=== PATIENT | female | born 1955 | race African-American/Black ===

== ENCOUNTER 2018-12-23 18:13 | Observation (INO) ==
[2018-12-23] MEDS ORDERED: ONDANSETRON 4 MG/2 ML VIAL IV STA (18:37)
[2018-12-23] MEDS ORDERED: ALBUTEROL/IPRATROPIUM 3 ML NEB RESP TX STA (18:37)
[2018-12-23] MEDS ORDERED: PANTOPRAZOLE 40 MG VIAL IV STA (18:37)
[2018-12-23] MEDS ORDERED: METOPROLOL TARTRATE 5 MG/5 ML VIAL IV STA (18:37)
[2018-12-23 19:26] LABS: Basophils # 0.1 10*3/uL (0.0-0.2); Basophils % 1.1 % (0.0-0.8); Eosinophils # 0.2 10*3/uL (0.0-0.87); Eosinophils % 3.2 % (0.00-10.9); Hematocrit 32.5 VOL% (35.7-47.0); Hemoglobin 10.1 GM/DL (12.0-16.0); Immature Granulocytes % 0.4 %; Immature Granulocytes Absolute 0.02 #; Lymphocytes # 1.2 10*3/uL (1.4-4.0); Lymphocytes % 22.2 % (21.3-54.2); Mean Corpuscular HGB Conc 31.1 GM/DL (32-36); Mean Corpuscular Hemoglobin 29 PG (27-34); Mean Corpuscular Volume 94.2 FL (87-102); Mean Platelet Volume 10.4 FL (9.6-12.0); Monocytes # 0.6 10*3/uL (0.11-0.8); Monocytes % 10.6 % (1.7-12.7); Neutrophils # 3.5 10*3/uL (1.4-7.4); Neutrophils % 62.5 % (38.7-73.9); Platelet Count 192 T/CUMM (130-400); Red Blood Count 3.45 MC/CUMM (3.8-5.5); Red Cell Distribution Width 16.4 % (9.3-17.3); White Blood Count 5.6 T/CUMM (4-12)
[2018-12-23 19:38] LABS: INR 0.9; PT Patient Result 10.3 SECS; Partial Thromboplastin Time 25.9 SECS (0-40)
[2018-12-23 19:47] LABS: Alanine Aminotransferase 18 U/L (13-56); Albumin 3.4 G/DL (3.4-5.0); Alkaline Phosphatase 93 U/L (45-117); Amylase 92 U/L (25-115); Aspartate Amino Transferase 25 U/L (0-37); Blood Urea Nitrogen 12 MG/DL (7-18); Calcium 8.7 MG/DL (8.5-10.1); Glucose 94 MG/DL (74-106); Osmolality,Calculated 278.4 MOS/KG (273-304); Sodium 140 MMOL/L (136-145); Total Protein 7.1 G/DL (6.4-8.3); Troponin I 0.102 NG/ML (0.00-0.045)
[2018-12-23] MEDS ORDERED: ACETAMINOPHEN 325 MG TABLET PO PRN (20:57)
[2018-12-23] MEDS ORDERED: ONDANSETRON 4 MG/2 ML VIAL IV PRN (20:57)
[2018-12-23] MEDS ORDERED: hydrALAZINE 20 MG/1 ML VIAL IV PRN (21:04)
[2018-12-23] MEDS: cloNIDine 0.1 MG TABLET PO SCH (23:47)
[2018-12-23] MEDS: ENOXAPARIN 30 MG/0.3 ML SYRINGE SUBCUT SCH (23:47)
[2018-12-23] MEDS: CARVEDILOL 6.25 MG TABLET PO SCH (23:47)
[2018-12-23] MEDS: TIMOLOL 0.25% OPH SOLN 5 ML BOTTLE BOTH EYES SCH (23:48)
[2018-12-24] MEDS: LEVOTHYROXINE 50 MCG TABLET PO SCH (06:28)
[2018-12-24 06:50] LABS: Basophils # 0.1 10*3/uL (0.0-0.2); Basophils % 1.7 % (0.0-0.8); Eosinophils # 0.1 10*3/uL (0.0-0.87); Eosinophils % 3.9 % (0.00-10.9); Hematocrit 28.6 VOL% (35.7-47.0); Hemoglobin 8.5 GM/DL (12.0-16.0); Immature Granulocytes % 0.3 %; Immature Granulocytes Absolute 0.01 #; Lymphocytes % 28.9 % (21.3-54.2); Mean Corpuscular HGB Conc 29.7 GM/DL (32-36); Mean Corpuscular Hemoglobin 29 PG (27-34); Mean Corpuscular Volume 97.3 FL (87-102); Mean Platelet Volume 10.4 FL (9.6-12.0); Monocytes # 0.4 10*3/uL (0.11-0.8); Monocytes % 11.1 % (1.7-12.7); Neutrophils % 54.1 % (38.7-73.9); Platelet Count 142 T/CUMM (130-400); Red Blood Count 2.94 MC/CUMM (3.8-5.5); Red Cell Distribution Width 16.4 % (9.3-17.3); White Blood Count 3.6 T/CUMM (4-12)
[2018-12-24 07:12] LABS: Calcium 8.4 MG/DL (8.5-10.1); Osmolality,Calculated 277.5 MOS/KG (273-304); Potassium 3.2 MMOL/L (3.5-5.1)
[2018-12-24] MEDS ORDERED: Sucroferric Oxyhydroxide [Velphoro Chew Tab] 500 MG PO SCH (08:00)
[2018-12-24] MEDS: CALCITRIOL 0.5 MCG CAPSULE PO SCH (08:38)
[2018-12-24] MEDS: CALCIUM (CARBONATE) 500 MG TABLET PO SCH ×6 (08:39→21:35)
[2018-12-24] MEDS: cloNIDine 0.1 MG TABLET PO SCH ×2 (08:40→21:35)
[2018-12-24] MEDS: LOSARTAN 50 MG TABLET PO SCH (08:40)
[2018-12-24] MEDS: ASPIRIN EC 81 MG TABLET PO SCH (08:40)
[2018-12-24] MEDS: amLODIPine 10 MG TABLET PO SCH (08:40)
[2018-12-24] MEDS: PANTOPRAZOLE 40 MG TABLET PO SCH (08:40)
[2018-12-24] MEDS: CARVEDILOL 6.25 MG TABLET PO SCH ×2 (08:40→17:35)
[2018-12-24] MEDS: ISOSORBIDE MONONITRATE 30 MG TABLET PO SCH (08:40)
[2018-12-24] MEDS: TIMOLOL 0.25% OPH SOLN 5 ML BOTTLE BOTH EYES SCH ×2 (08:40→21:36)
[2018-12-24] MEDS ORDERED: PANTOPRAZOLE 40 MG TABLET PO SCH (09:00)
[2018-12-24] MEDS: ENOXAPARIN 30 MG/0.3 ML SYRINGE SUBCUT SCH (21:36)
[2018-12-25] MEDS: LEVOTHYROXINE 50 MCG TABLET PO SCH (06:11)
[2018-12-25] MEDS: ASPIRIN EC 81 MG TABLET PO SCH (08:16)
[2018-12-25] MEDS: amLODIPine 10 MG TABLET PO SCH (08:16)
[2018-12-25] MEDS: CALCITRIOL 0.5 MCG CAPSULE PO SCH (08:16)
[2018-12-25] MEDS: LOSARTAN 50 MG TABLET PO SCH (08:16)
[2018-12-25] MEDS: PANTOPRAZOLE 40 MG TABLET PO SCH (08:17)
[2018-12-25] MEDS: CARVEDILOL 6.25 MG TABLET PO SCH ×2 (08:17→16:56)
[2018-12-25] MEDS: ISOSORBIDE MONONITRATE 30 MG TABLET PO SCH (08:17)
[2018-12-25] MEDS: TIMOLOL 0.25% OPH SOLN 5 ML BOTTLE BOTH EYES SCH ×2 (08:18→21:49)
[2018-12-25] MEDS: CALCIUM (CARBONATE) 500 MG TABLET PO SCH ×6 (08:18→21:48)
[2018-12-25] MEDS: cloNIDine 0.1 MG TABLET PO SCH ×2 (08:33→21:48)
[2018-12-25] MEDS ORDERED: POTASSIUM CHLORIDE 20 MEQ TABLET PO ONE (11:53)
[2018-12-25] MEDS: ENOXAPARIN 30 MG/0.3 ML SYRINGE SUBCUT SCH (21:49)
[2018-12-25] MEDS ORDERED: DOCUSATE SODIUM 100 MG CAPSULE PO ONE (22:00)
[2018-12-26] MEDS: LEVOTHYROXINE 50 MCG TABLET PO SCH (05:58)
[2018-12-26] MEDS ORDERED: DOCUSATE SODIUM 100 MG CAPSULE PO SCH (09:00)
[2018-12-26] MEDS: CALCITRIOL 0.5 MCG CAPSULE PO SCH (09:16)
[2018-12-26] MEDS: cloNIDine 0.1 MG TABLET PO SCH (09:16)
[2018-12-26] MEDS: LOSARTAN 50 MG TABLET PO SCH (09:16)
[2018-12-26] MEDS: CALCIUM (CARBONATE) 500 MG TABLET PO SCH ×5 (09:16→16:34)
[2018-12-26] MEDS: PANTOPRAZOLE 40 MG TABLET PO SCH (09:17)
[2018-12-26] MEDS: ISOSORBIDE MONONITRATE 30 MG TABLET PO SCH (09:17)
[2018-12-26] MEDS: amLODIPine 10 MG TABLET PO SCH (09:17)
[2018-12-26] MEDS: ASPIRIN EC 81 MG TABLET PO SCH (09:17)
[2018-12-26] MEDS: TIMOLOL 0.25% OPH SOLN 5 ML BOTTLE BOTH EYES SCH (09:18)
[2018-12-26] MEDS: CARVEDILOL 6.25 MG TABLET PO SCH ×2 (09:18→16:01)
[2018-12-26] MEDS ORDERED: EPOETIN ALFA 2,000 UNIT/1 ML VIAL IV PRN (10:28)
[2018-12-26] MEDS ORDERED: SODIUM PHOSPHATE ENEMA 133 ML BOTTLE RECTAL ONE (15:52)
[2018-12-26 16:09] VITALS: BP 166/72
== END 2018-12-26 18:27 | disposition home or self-care (01) ==
LOC: EDUNIT# → N.ED 18:13 → N.EDINP 18:13 → N.5E 22:24
PROVIDERS: ADMIT Internal Medicine; ATTEND Internal Medicine

== ENCOUNTER 2019-07-09 08:16 | Inpatient (IN) ==
[2019-07-09] MEDS ORDERED: ONDANSETRON 4 MG/2 ML VIAL IV PRN (10:10)
[2019-07-09] MEDS ORDERED: PNEUMOCOCCAL VACCINE (13 VALENT) 0.5 ML SYRINGE IM ONE (10:25)
[2019-07-09] MEDS ORDERED: LABETALOL 100 MG/20 ML VIAL IV ONE (10:38)
[2019-07-09 10:42] LABS: Basophils # 0.1 10*3/uL (0.0-0.2); Basophils % 1.1 % (0.0-0.8); Eosinophils # 0.1 10*3/uL (0.0-0.87); Eosinophils % 1.1 % (0.00-10.9); Hematocrit 33.9 VOL% (35.7-47.0); Hemoglobin 10.7 GM/DL (12.0-16.0); Immature Granulocytes % 0.5 %; Immature Granulocytes Absolute 0.03 #; Lymphocytes # 1.1 10*3/uL (1.4-4.0); Lymphocytes % 20.5 % (21.3-54.2); Mean Corpuscular HGB Conc 31.6 GM/DL (32-36); Mean Corpuscular Volume 90.6 FL (87-102); Mean Platelet Volume 10.4 FL (9.6-12.0); Monocytes % 5.8 % (1.7-12.7); Platelet Count 202 T/CUMM (130-400); Red Blood Count 3.74 MC/CUMM (3.8-5.5); Red Cell Distribution Width 16.7 % (9.3-17.3); White Blood Count 5.5 T/CUMM (4-12)
[2019-07-09 11:02] LABS: Albumin 3.4 G/DL (3.4-5.0); Bilirubin,Total 0.7 MG/DL (0.2-1.0); Calcium 9.8 MG/DL (8.5-10.1); Osmolality,Calculated 287.3 MOS/KG (273-304)
[2019-07-09] MEDS: cloNIDine 0.1 MG TABLET PO SCH ×2 (11:20→22:47)
[2019-07-09] MEDS: POTASSIUM CHLORIDE 20 MEQ TABLET PO PRN ×4 (11:20→18:51)
[2019-07-09 11:44] LABS: Troponin I 0.066 NG/ML (0.00-0.045)
[2019-07-09] MEDS: Sucroferric Oxyhydroxide [Velphoro] 500 MG PO SCH ×2 (12:56→17:47)
[2019-07-09] MEDS: ACETAMINOPHEN 325 MG TABLET PO PRN (13:13)
[2019-07-09 14:42] LABS: Troponin I 0.091 NG/ML (0.00-0.045)
[2019-07-09] MEDS: TIMOLOL 0.25% OPH SOLN 5 ML BOTTLE LEFT EYE SCH (20:30)
[2019-07-10 00:56] LABS: Basophils # 0.1 10*3/uL (0.0-0.2); Basophils % 1.2 % (0.0-0.8); Eosinophils # 0.1 10*3/uL (0.0-0.87); Eosinophils % 2.8 % (0.00-10.9); Hematocrit 31.2 VOL% (35.7-47.0); Hemoglobin 9.4 GM/DL (12.0-16.0); Immature Granulocytes % 0.4 %; Immature Granulocytes Absolute 0.02 #; Lymphocytes # 1.2 10*3/uL (1.4-4.0); Lymphocytes % 24.8 % (21.3-54.2); Mean Corpuscular HGB Conc 30.1 GM/DL (32-36); Mean Corpuscular Volume 93.4 FL (87-102); Mean Platelet Volume 10.5 FL (9.6-12.0); Monocytes % 8.1 % (1.7-12.7); Neutrophils % 62.7 % (38.7-73.9); Platelet Count 173 T/CUMM (130-400); Red Blood Count 3.34 MC/CUMM (3.8-5.5); White Blood Count 4.9 T/CUMM (4-12)
[2019-07-10 06:04] LABS: Albumin 2.9 G/DL (3.4-5.0); Bilirubin,Total 0.8 MG/DL (0.2-1.0); Osmolality,Calculated 291.3 MOS/KG (273-304); Risk Ratio 2.74; Thyroid Stimulating Hormone 1.86 uIU/ml (0.358-3.74); Total Protein 6.2 G/DL (6.4-8.3)
[2019-07-10] MEDS: Sucroferric Oxyhydroxide [Velphoro] 500 MG PO SCH ×4 (07:54→16:05)
[2019-07-10] MEDS: LOSARTAN 50 MG TABLET PO SCH ×2 (09:24→14:23)
[2019-07-10] MEDS: ISOSORBIDE MONONITRATE 30 MG TABLET PO SCH ×2 (09:24→14:23)
[2019-07-10] MEDS: PANTOPRAZOLE 40 MG TABLET PO SCH ×2 (09:24→14:23)
[2019-07-10] MEDS: TIMOLOL 0.25% OPH SOLN 5 ML BOTTLE LEFT EYE SCH ×3 (09:25→22:05)
[2019-07-10] MEDS: LEVOTHYROXINE 50 MCG TABLET PO SCH ×2 (09:25→14:23)
[2019-07-10] MEDS: cloNIDine 0.1 MG TABLET PO SCH ×2 (12:23→14:24)
[2019-07-10] MEDS: hydrALAZINE 20 MG/1 ML VIAL IV PRN (16:05)
[2019-07-10] MEDS ORDERED: niCARdipine INJ 25 MG in SODIUM CHLORIDE 0.9% 240 ML IV PRN (18:37)
[2019-07-10] MEDS ORDERED: niCARdipine INJ 50 MG in SODIUM CHLORIDE 0.9% 480 ML IV PRN (20:56)
[2019-07-11] MEDS: cloNIDine 0.1 MG TABLET PO SCH ×3 (00:22→16:25)
[2019-07-11 05:17] LABS: Basophils # 0.1 10*3/uL (0.0-0.2); Basophils % 1.6 % (0.0-0.8); Eosinophils # 0.2 10*3/uL (0.0-0.87); Eosinophils % 3.9 % (0.00-10.9); Hematocrit 32.3 VOL% (35.7-47.0); Hemoglobin 9.8 GM/DL (12.0-16.0); Immature Granulocytes % 0.2 %; Immature Granulocytes Absolute 0.01 #; Lymphocytes # 1.3 10*3/uL (1.4-4.0); Mean Corpuscular HGB Conc 30.3 GM/DL (32-36); Mean Corpuscular Volume 93.6 FL (87-102); Mean Platelet Volume 10.6 FL (9.6-12.0); Monocytes % 8.3 % (1.7-12.7); Platelet Count 187 T/CUMM (130-400); Red Blood Count 3.45 MC/CUMM (3.8-5.5); White Blood Count 5.1 T/CUMM (4-12)
[2019-07-11 05:35] LABS: Albumin 3.1 G/DL (3.4-5.0); Bilirubin,Total 0.5 MG/DL (0.2-1.0); Calcium 8.4 MG/DL (8.5-10.1); Osmolality,Calculated 279.8 MOS/KG (273-304); Total Protein 6.4 G/DL (6.4-8.3)
[2019-07-11] MEDS: TIMOLOL 0.25% OPH SOLN 5 ML BOTTLE LEFT EYE SCH ×2 (08:50→22:51)
[2019-07-11] MEDS: LOSARTAN 50 MG TABLET PO SCH (08:53)
[2019-07-11] MEDS: LEVOTHYROXINE 50 MCG TABLET PO SCH (08:53)
[2019-07-11] MEDS: ASPIRIN EC 81 MG TABLET PO SCH (08:54)
[2019-07-11] MEDS: Sucroferric Oxyhydroxide [Velphoro] 500 MG PO SCH ×3 (08:54→17:12)
[2019-07-11] MEDS: PANTOPRAZOLE 40 MG TABLET PO SCH (08:54)
[2019-07-11] MEDS: ISOSORBIDE MONONITRATE 30 MG TABLET PO SCH (08:55)
[2019-07-11] MEDS ORDERED: cloNIDine 0.1 MG TABLET PO SCH (09:00)
[2019-07-11] MEDS: DOXAZOSIN 1 MG TABLET PO SCH (14:07)
[2019-07-12] MEDS ORDERED: LOSARTAN 50 MG TABLET PO SCH (09:00)
[2019-07-12] MEDS: ISOSORBIDE MONONITRATE 30 MG TABLET PO SCH (12:51)
[2019-07-12] MEDS: ASPIRIN EC 81 MG TABLET PO SCH (12:52)
[2019-07-12] MEDS: LEVOTHYROXINE 50 MCG TABLET PO SCH (12:52)
[2019-07-12] MEDS: DOXAZOSIN 1 MG TABLET PO SCH (12:52)
[2019-07-12] MEDS: PANTOPRAZOLE 40 MG TABLET PO SCH (12:52)
[2019-07-12] MEDS: Sucroferric Oxyhydroxide [Velphoro] 500 MG PO SCH ×3 (12:53→19:25)
[2019-07-12] MEDS: TIMOLOL 0.25% OPH SOLN 5 ML BOTTLE LEFT EYE SCH (12:54)
[2019-07-12] MEDS ORDERED: NITROGLYCERIN SL 0.4 MG TABLET SL ONE (17:25)
[2019-07-12] MEDS ORDERED: MORPHINE 4 MG/1 ML VIAL ONE (17:46)
[2019-07-12] MEDS: MORPHINE 4 MG/1 ML VIAL IV PRN (17:49)
[2019-07-12] MEDS: hydrALAZINE 20 MG/1 ML VIAL IV PRN (17:51)
[2019-07-12] MEDS ORDERED: NITROGLYCERIN SL 0.4 MG TABLET SL PRN (18:06)
[2019-07-12] MEDS: DOCUSATE SODIUM 100 MG CAPSULE PO PRN (20:17)
[2019-07-13] MEDS: hydrALAZINE 20 MG/1 ML VIAL IV PRN (00:02)
[2019-07-13] MEDS: cloNIDine 0.1 MG TABLET PO SCH ×3 (01:50→16:18)
[2019-07-13] MEDS: TIMOLOL 0.25% OPH SOLN 5 ML BOTTLE LEFT EYE SCH ×2 (03:00→10:20)
[2019-07-13] MEDS: ASPIRIN EC 81 MG TABLET PO SCH (09:46)
[2019-07-13] MEDS: ISOSORBIDE MONONITRATE 30 MG TABLET PO SCH (09:46)
[2019-07-13] MEDS: DOXAZOSIN 1 MG TABLET PO SCH (09:46)
[2019-07-13] MEDS: Sucroferric Oxyhydroxide [Velphoro] 500 MG PO SCH ×3 (09:46→16:18)
[2019-07-13] MEDS: LEVOTHYROXINE 50 MCG TABLET PO SCH (09:47)
[2019-07-13] MEDS: OLMESARTAN 5 MG TABLET PO SCH (09:47)
[2019-07-13] MEDS: PANTOPRAZOLE 40 MG TABLET PO SCH (09:47)
[2019-07-13] MEDS ORDERED: ZALEPLON 5 MG CAPSULE PO ONE (21:00)
[2019-07-14] MEDS: TIMOLOL 0.25% OPH SOLN 5 ML BOTTLE LEFT EYE SCH ×3 (01:04→21:25)
[2019-07-14] MEDS: cloNIDine 0.1 MG TABLET PO SCH ×3 (01:05→17:21)
[2019-07-14] MEDS: Sucroferric Oxyhydroxide [Velphoro] 500 MG PO SCH ×3 (09:00→17:59)
[2019-07-14] MEDS: ASPIRIN EC 81 MG TABLET PO SCH (14:09)
[2019-07-14] MEDS: DOXAZOSIN 1 MG TABLET PO SCH (14:09)
[2019-07-14] MEDS: OLMESARTAN 5 MG TABLET PO SCH (14:09)
[2019-07-14] MEDS: LEVOTHYROXINE 50 MCG TABLET PO SCH (14:09)
[2019-07-14] MEDS: PANTOPRAZOLE 40 MG TABLET PO SCH (14:09)
[2019-07-14] MEDS: ISOSORBIDE MONONITRATE 30 MG TABLET PO SCH (14:10)
[2019-07-14] MEDS: ACETAMINOPHEN 325 MG TABLET PO PRN (20:56)
[2019-07-15] MEDS: MORPHINE 4 MG/1 ML VIAL IV PRN (01:13)
[2019-07-15] MEDS: cloNIDine 0.1 MG TABLET PO SCH ×3 (01:14→15:58)
[2019-07-15] MEDS: DOCUSATE SODIUM 100 MG CAPSULE PO PRN (05:23)
[2019-07-15] MEDS: LEVOTHYROXINE 50 MCG TABLET PO SCH (08:08)
[2019-07-15] MEDS: OLMESARTAN 5 MG TABLET PO SCH (08:08)
[2019-07-15] MEDS: ISOSORBIDE MONONITRATE 30 MG TABLET PO SCH (08:09)
[2019-07-15] MEDS: DOXAZOSIN 1 MG TABLET PO SCH (08:09)
[2019-07-15] MEDS: PANTOPRAZOLE 40 MG TABLET PO SCH (08:09)
[2019-07-15] MEDS: ASPIRIN EC 81 MG TABLET PO SCH (08:09)
[2019-07-15] MEDS: Sucroferric Oxyhydroxide [Velphoro] 500 MG PO SCH ×3 (08:20→17:30)
[2019-07-15] MEDS ORDERED: LACTULOSE 20 GM/30 ML UDCUP PO ONE (13:18)
[2019-07-15] MEDS: BISACODYL 5 MG TABLET PO SCH (15:45)
[2019-07-15] MEDS: TIMOLOL 0.25% OPH SOLN 5 ML BOTTLE LEFT EYE SCH ×2 (15:46→21:21)
[2019-07-15] MEDS: hydrALAZINE 20 MG/1 ML VIAL IV PRN (21:18)
[2019-07-15] MEDS: ISOSORBIDE MONONITRATE 60 MG TABLET PO SCH (21:21)
[2019-07-16] MEDS: cloNIDine 0.1 MG TABLET PO SCH ×3 (00:05→16:54)
[2019-07-16] MEDS: OLMESARTAN 5 MG TABLET PO SCH (08:57)
[2019-07-16] MEDS: BISACODYL 5 MG TABLET PO SCH (08:57)
[2019-07-16] MEDS: ASPIRIN EC 81 MG TABLET PO SCH (08:57)
[2019-07-16] MEDS: PANTOPRAZOLE 40 MG TABLET PO SCH (08:57)
[2019-07-16] MEDS: LEVOTHYROXINE 50 MCG TABLET PO SCH (08:57)
[2019-07-16] MEDS: DOXAZOSIN 1 MG TABLET PO SCH (08:57)
[2019-07-16] MEDS: ISOSORBIDE MONONITRATE 60 MG TABLET PO SCH (08:57)
[2019-07-16] MEDS: Sucroferric Oxyhydroxide [Velphoro] 500 MG PO SCH ×3 (08:58→16:55)
[2019-07-16 13:15] VITALS: BP 158/74
[2019-07-16] MEDS: TIMOLOL 0.25% OPH SOLN 5 ML BOTTLE LEFT EYE SCH (16:55)
== END 2019-07-16 17:30 | disposition home or self-care (01) | DRG 291 ==
LOC: N.TELEN → SUATTDRO 09:55 → N.ICU 07-10 18:56 → N.TELEN 07-11 18:22
PROVIDERS: ADMIT Internal Medicine; ATTEND Internal Medicine

== ENCOUNTER 2019-07-19 15:10 | Observation (INO) ==
[2019-07-19 17:28] LABS: Basophils % 1.3 % (0.0-0.8); Eosinophils # 0.1 10*3/uL (0.0-0.87); Eosinophils % 2.6 % (0.00-10.9); Hematocrit 32.3 VOL% (35.7-47.0); Hemoglobin 10.2 GM/DL (12.0-16.0); Immature Granulocytes % 0.3 %; Immature Granulocytes Absolute 0.01 #; Lymphocytes # 1.1 10*3/uL (1.4-4.0); Lymphocytes % 33.9 % (21.3-54.2); Mean Corpuscular HGB Conc 31.6 GM/DL (32-36); Mean Corpuscular Volume 88.3 FL (87-102); Mean Platelet Volume 10.6 FL (9.6-12.0); Monocytes % 13.9 % (1.7-12.7); Platelet Count 172 T/CUMM (130-400); Red Blood Count 3.66 MC/CUMM (3.8-5.5); Red Cell Distribution Width 15.9 % (9.3-17.3); White Blood Count 3.1 T/CUMM (4-12)
[2019-07-19 17:49] LABS: Calcium 9.1 MG/DL (8.5-10.1); Osmolality,Calculated 278.5 MOS/KG (273-304)
[2019-07-19] MEDS ORDERED: DOCUSATE SODIUM 100 MG CAPSULE PO PRN (18:37)
[2019-07-19] MEDS ORDERED: ENOXAPARIN 30 MG/0.3 ML SYRINGE SUBCUT SCH (21:30)
[2019-07-19] MEDS: OLMESARTAN 5 MG TABLET PO SCH (22:07)
[2019-07-19] MEDS: ISOSORBIDE MONONITRATE 60 MG TABLET PO SCH (22:07)
[2019-07-19] MEDS: TIMOLOL 0.25% OPH SOLN 5 ML BOTTLE LEFT EYE SCH (22:09)
[2019-07-20] MEDS: hydrALAZINE 20 MG/1 ML VIAL IV PRN ×3 (01:42→09:07)
[2019-07-20] MEDS: MORPHINE 4 MG/1 ML VIAL IV PRN ×3 (01:43→23:24)
[2019-07-20 07:07] LABS: Calcium 9.1 MG/DL (8.5-10.1); Osmolality,Calculated 280.4 MOS/KG (273-304); Risk Ratio 3.15
[2019-07-20] MEDS: TIMOLOL 0.25% OPH SOLN 5 ML BOTTLE LEFT EYE SCH ×2 (09:03→20:39)
[2019-07-20] MEDS: DOXAZOSIN 1 MG TABLET PO SCH (11:33)
[2019-07-20] MEDS: OLMESARTAN 5 MG TABLET PO SCH ×2 (11:33→20:38)
[2019-07-20] MEDS: PANTOPRAZOLE 40 MG TABLET PO SCH (11:35)
[2019-07-20] MEDS: LOSARTAN 50 MG TABLET PO SCH (11:35)
[2019-07-20] MEDS: BISACODYL 5 MG TABLET PO SCH (11:35)
[2019-07-20] MEDS: ISOSORBIDE MONONITRATE 60 MG TABLET PO SCH ×2 (11:35→20:38)
[2019-07-20] MEDS: LEVOTHYROXINE 50 MCG TABLET PO SCH (11:36)
[2019-07-20] MEDS: ASPIRIN EC 81 MG TABLET PO SCH (11:36)
[2019-07-20] MEDS: Sucroferric Oxyhydroxide [Velphoro] 1,000 MG PO SCH ×2 (11:40→16:06)
[2019-07-20] MEDS ORDERED: ALBUTEROL/IPRATROPIUM 3 ML NEB RESP TX PRN (11:52)
[2019-07-21] MEDS: hydrALAZINE 20 MG/1 ML VIAL IV PRN (01:43)
[2019-07-21 04:41] LABS: Basophils # 0.1 10*3/uL (0.0-0.2); Basophils % 1.2 % (0.0-0.8); Eosinophils # 0.1 10*3/uL (0.0-0.87); Eosinophils % 2.2 % (0.00-10.9); Hematocrit 30.4 VOL% (35.7-47.0); Hemoglobin 9.4 GM/DL (12.0-16.0); Immature Granulocytes % 0.4 %; Immature Granulocytes Absolute 0.02 #; Lymphocytes # 1.2 10*3/uL (1.4-4.0); Lymphocytes % 24.2 % (21.3-54.2); Mean Corpuscular HGB Conc 30.9 GM/DL (32-36); Mean Corpuscular Volume 89.9 FL (87-102); Mean Platelet Volume 10.6 FL (9.6-12.0); Monocytes % 10.3 % (1.7-12.7); Neutrophils % 61.7 % (38.7-73.9); Platelet Count 196 T/CUMM (130-400); Red Blood Count 3.38 MC/CUMM (3.8-5.5); Red Cell Distribution Width 16.1 % (9.3-17.3)
[2019-07-21 05:13] LABS: Calcium 8.6 MG/DL (8.5-10.1)
[2019-07-21] MEDS ORDERED: SODIUM CHLORIDE 0.9% 250 ML IV SCH (08:00)
[2019-07-21] MEDS: Sucroferric Oxyhydroxide [Velphoro] 1,000 MG PO SCH ×3 (08:07→17:07)
[2019-07-21] MEDS: ISOSORBIDE MONONITRATE 60 MG TABLET PO SCH (08:07)
[2019-07-21] MEDS: OLMESARTAN 5 MG TABLET PO SCH (08:07)
[2019-07-21] MEDS: ASPIRIN EC 81 MG TABLET PO SCH (08:07)
[2019-07-21] MEDS ORDERED: POLYETHYLENE GLYCOL POWDER 17 GM PACK PO PRN (09:00)
[2019-07-21] MEDS ORDERED: PROPOFOL 200 MG/20 ML VIAL IV ONE (09:00)
[2019-07-21] MEDS ORDERED: LIDOCAINE 100 MG/5 ML SYRINGE ONE (09:00)
[2019-07-21] MEDS: BISACODYL 5 MG TABLET PO SCH ×2 (12:15→12:20)
[2019-07-21] MEDS: DOXAZOSIN 1 MG TABLET PO SCH (12:15)
[2019-07-21] MEDS: PANTOPRAZOLE 40 MG TABLET PO SCH (12:15)
[2019-07-21] MEDS: LOSARTAN 50 MG TABLET PO SCH (12:15)
[2019-07-21] MEDS: TIMOLOL 0.25% OPH SOLN 5 ML BOTTLE LEFT EYE SCH (12:16)
[2019-07-21] MEDS: LEVOTHYROXINE 50 MCG TABLET PO SCH (12:16)
[2019-07-21 18:11] VITALS: BP 169/84
== END 2019-07-21 18:24 | disposition home or self-care (01) ==
LOC: N.ED 15:10 → N.EDINP 15:10 → N.5E 18:51
PROVIDERS: ADMIT Internal Medicine; ATTEND Internal Medicine

== ENCOUNTER 2019-11-03 19:17 | Observation (INO) ==
[2019-11-03 19:52] LABS: Basophils % 1.2 % (0.0-0.8); Eosinophils # 0.2 10*3/uL (0.0-0.87); Eosinophils % 4.9 % (0.00-10.9); Hematocrit 38.4 VOL% (35.7-47.0); Hemoglobin 12.5 GM/DL (12.0-16.0); Immature Granulocytes % 0.3 %; Immature Granulocytes Absolute 0.01 #; Lymphocytes # 1.1 10*3/uL (1.4-4.0); Lymphocytes % 33.9 % (21.3-54.2); Mean Corpuscular HGB Conc 32.6 GM/DL (32-36); Mean Corpuscular Volume 88.3 FL (87-102); Monocytes % 11.6 % (1.7-12.7); Neutrophils % 48.1 % (38.7-73.9); Platelet Count 147 T/CUMM (130-400); Red Blood Count 4.35 MC/CUMM (3.8-5.5); Red Cell Distribution Width 16.7 % (9.3-17.3); White Blood Count 3.3 T/CUMM (4-12)
[2019-11-03 20:14] LABS: Albumin 3.7 G/DL (3.4-5.0); Bilirubin,Total 0.7 MG/DL (0.2-1.0); Osmolality,Calculated 264.4 MOS/KG (273-304)
[2019-11-03] MEDS ORDERED: NITROGLYCERIN SL 0.4 MG TABLET SL STA (20:15)
[2019-11-04] MEDS ORDERED: ACETAMINOPHEN 325 MG TABLET PO PRN (00:07)
[2019-11-04] MEDS ORDERED: DOCUSATE SODIUM 100 MG CAPSULE PO PRN (00:07)
[2019-11-04] MEDS ORDERED: guaiFENesin/DM ER 600-30 MG TABLET PO PRN (00:07)
[2019-11-04] MEDS ORDERED: ZALEPLON 5 MG CAPSULE PO PRN (00:07)
[2019-11-04] MEDS ORDERED: PROMETHAZINE 25 MG TABLET PO PRN (00:07)
[2019-11-04] MEDS ORDERED: diphenhydrAMINE CAP 25 MG CAPSULE PO PRN (00:07)
[2019-11-04] MEDS ORDERED: ONDANSETRON 4 MG/2 ML VIAL IV PRN (00:07)
[2019-11-04] MEDS ORDERED: MORPHINE 4 MG/1 ML VIAL IV PRN (00:07)
[2019-11-04] MEDS ORDERED: hydrALAZINE 20 MG/1 ML VIAL IV PRN (00:10)
[2019-11-04] MEDS ORDERED: POLYETHYLENE GLYCOL POWDER 17 GM PACK PO PRN (00:11)
[2019-11-04] MEDS ORDERED: NITROGLYCERIN SL 0.4 MG TABLET SL PRN (00:13)
[2019-11-04] MEDS ORDERED: ALBUTEROL 2.5 MG/3 ML NEB RESP TX PRN (00:13)
[2019-11-04 05:11] LABS: Basophils # 0.1 10*3/uL (0.0-0.2); Basophils % 1.6 % (0.0-0.8); Eosinophils # 0.2 10*3/uL (0.0-0.87); Eosinophils % 6.6 % (0.00-10.9); Hematocrit 32.8 VOL% (35.7-47.0); Immature Granulocytes % 0.3 %; Immature Granulocytes Absolute 0.01 #; Lymphocytes # 1.3 10*3/uL (1.4-4.0); Lymphocytes % 34.9 % (21.3-54.2); Mean Corpuscular Volume 90.1 FL (87-102); Mean Platelet Volume 10.9 FL (9.6-12.0); Monocytes % 14.6 % (1.7-12.7); Platelet Count 124 T/CUMM (130-400); Red Blood Count 3.64 MC/CUMM (3.8-5.5); Red Cell Distribution Width 16.9 % (9.3-17.3); White Blood Count 3.6 T/CUMM (4-12)
[2019-11-04 05:21] LABS: Hemoglobin 10.5 GM/DL (12.0-16.0)
[2019-11-04 05:23] LABS: Alanine Aminotransferase 13 U/L (13-56); Alkaline Phosphatase 79 U/L (45-117); Aspartate Amino Transferase 16 U/L (0-37); Bilirubin,Total < 0.39 MG/DL (0.2-1.0); Blood Urea Nitrogen 17 MG/DL (7-18); Calcium 7.9 MG/DL (8.5-10.1); Estimated Glom Filtration Rate 11 ML/MIN; Glucose 81 MG/DL (74-106); Osmolality,Calculated 273.8 MOS/KG (273-304); Total Protein 6.6 G/DL (6.4-8.3)
[2019-11-04] MEDS ORDERED: ENOXAPARIN 80 MG/0.8 ML SYRINGE SUBCUT ONE (07:09)
[2019-11-04] MEDS: LEVOTHYROXINE 50 MCG TABLET PO SCH (09:51)
[2019-11-04] MEDS: DOXAZOSIN 1 MG TABLET PO SCH (09:51)
[2019-11-04] MEDS: ISOSORBIDE MONONITRATE 60 MG TABLET PO SCH ×2 (09:51→21:43)
[2019-11-04] MEDS: ASPIRIN EC 81 MG TABLET PO SCH (09:51)
[2019-11-04] MEDS ORDERED: ATORVASTATIN 20 MG TABLET PO SCH (21:00)
[2019-11-04] MEDS: GABAPENTIN 100 MG CAPSULE PO SCH (21:43)
[2019-11-05 04:39] LABS: Basophils # 0.1 10*3/uL (0.0-0.2); Basophils % 2.1 % (0.0-0.8); Eosinophils # 0.2 10*3/uL (0.0-0.87); Eosinophils % 8.1 % (0.00-10.9); Hematocrit 30.9 VOL% (35.7-47.0); Hemoglobin 9.8 GM/DL (12.0-16.0); Immature Granulocytes % 0.4 %; Immature Granulocytes Absolute 0.01 #; Lymphocytes # 1.2 10*3/uL (1.4-4.0); Lymphocytes % 42.8 % (21.3-54.2); Mean Corpuscular HGB Conc 31.7 GM/DL (32-36); Mean Corpuscular Volume 89.8 FL (87-102); Mean Platelet Volume 9.8 FL (9.6-12.0); Neutrophils % 33.6 % (38.7-73.9); Platelet Count 114 T/CUMM (130-400); Red Blood Count 3.44 MC/CUMM (3.8-5.5); Red Cell Distribution Width 16.5 % (9.3-17.3); White Blood Count 2.9 T/CUMM (4-12)
[2019-11-05 05:21] LABS: Eosinophils 8 % (0-10); Hypochromasia 1+; Lymphocytes 40 % (20-55); Microcytosis 1+; Segmented Neutrophils 42 % (50-85); Total Cells Counted 100
[2019-11-05 05:22] LABS: Atypical Lymphocytes Few; Platelet Estimate Adequate
[2019-11-05 06:06] LABS: Calcium 7.8 MG/DL (8.5-10.1); Osmolality,Calculated 274.8 MOS/KG (273-304)
[2019-11-05 07:48] VITALS: BP 144/65
[2019-11-05] MEDS: GABAPENTIN 100 MG CAPSULE PO SCH (09:06)
[2019-11-05] MEDS: DOXAZOSIN 1 MG TABLET PO SCH (09:06)
[2019-11-05] MEDS: LEVOTHYROXINE 50 MCG TABLET PO SCH (09:06)
[2019-11-05] MEDS: ASPIRIN EC 81 MG TABLET PO SCH (09:06)
[2019-11-05] MEDS: ISOSORBIDE MONONITRATE 60 MG TABLET PO SCH (09:06)
[2019-11-05] MEDS ORDERED: POTASSIUM CHLORIDE 20 MEQ TABLET PO ONE (11:23)
== END 2019-11-05 11:25 | disposition home or self-care (01) ==
LOC: N.ED 19:17 → N.EDINP 19:17 → SUATTDRO 11-04 00:07 → N.TELEN 11-04 00:35
PROVIDERS: ADMIT Internal Medicine; ATTEND Internal Medicine

== ENCOUNTER 2020-04-05 19:00 | Inpatient (IN) ==
[2020-04-05] MEDS ORDERED: ONDANSETRON 4 MG/2 ML VIAL IV STA (19:27)
[2020-04-05] MEDS ORDERED: ORPHENADRINE 60 MG/2 ML VIAL IV STA (19:27)
[2020-04-05 20:04] LABS: Basophils # 0.1 10*3/uL (0.0-0.2); Basophils % 1.1 % (0.0-0.8); Eosinophils # 0.2 10*3/uL (0.0-0.87); Eosinophils % 4.4 % (0.00-10.9); Hematocrit 27.2 VOL% (35.7-47.0); Hemoglobin 8.4 GM/DL (12.0-16.0); Immature Granulocytes % 0.4 %; Immature Granulocytes Absolute 0.02 #; Lymphocytes # 1.1 10*3/uL (1.4-4.0); Lymphocytes % 20.1 % (21.3-54.2); Mean Corpuscular HGB Conc 30.9 GM/DL (32-36); Mean Corpuscular Volume 95.1 FL (87-102); Mean Platelet Volume 10.6 FL (9.6-12.0); Monocytes % 10.1 % (1.7-12.7); Neutrophils % 63.9 % (38.7-73.9); Platelet Count 126 T/CUMM (130-400); Red Blood Count 2.86 MC/CUMM (3.8-5.5); Red Cell Distribution Width 17.2 % (9.3-17.3); White Blood Count 5.2 T/CUMM (4-12)
[2020-04-05 20:16] LABS: INR 1.1; PT Patient Result 11.3 SECS (9.8-11.9)
[2020-04-05 20:30] LABS: Alanine Aminotransferase 12 U/L (13-56); Albumin 3.2 G/DL (3.4-5.0); Alkaline Phosphatase 97 U/L (45-117); Aspartate Amino Transferase 22 U/L (0-37); Blood Urea Nitrogen 39 MG/DL (7-18); Estimated Glom Filtration Rate 8 ML/MIN; Ferritin 1612.6 ng/ml (8-252); Glucose 82 MG/DL (74-106); Osmolality,Calculated 275.2 MOS/KG (273-304); Total Protein 7.5 G/DL (6.4-8.3)
[2020-04-05 20:34] LABS: Troponin I 0.046 NG/ML (0.00-0.045)
[2020-04-05] MEDS ORDERED: PROMETHAZINE 25 MG/1 ML VIAL IM PRN (22:34)
[2020-04-05] MEDS ORDERED: ACETAMINOPHEN 325 MG TABLET PO PRN (22:34)
[2020-04-05] MEDS ORDERED: DEXTROSE 50% 25 GM/50 ML VIAL IV PRN (22:34)
[2020-04-05] MEDS ORDERED: ZALEPLON 5 MG CAPSULE PO PRN (22:34)
[2020-04-05] MEDS ORDERED: DOCUSATE SODIUM 100 MG CAPSULE PO PRN (22:34)
[2020-04-05] MEDS ORDERED: guaiFENesin/DM ER 600-30 MG TABLET PO PRN (22:34)
[2020-04-05] MEDS ORDERED: GLUCAGON 1 MG VIAL IM PRN (22:34)
[2020-04-05] MEDS ORDERED: ONDANSETRON 4 MG/2 ML VIAL IV PRN (22:34)
[2020-04-05] MEDS ORDERED: NICOTINE 21 MG/24 HR PATCH TRANSDERM PRN (22:34)
[2020-04-06] MEDS: hydrALAZINE 20 MG/1 ML VIAL IV PRN ×3 (04:38→22:11)
[2020-04-06 06:07] LABS: Basophils # 0.1 10*3/uL (0.0-0.2); Basophils % 1.1 % (0.0-0.8); Eosinophils # 0.2 10*3/uL (0.0-0.87); Eosinophils % 3.8 % (0.00-10.9); Hematocrit 23.9 VOL% (35.7-47.0); Hemoglobin 7.3 GM/DL (12.0-16.0); Immature Granulocytes % 0.4 %; Immature Granulocytes Absolute 0.02 #; Lymphocytes # 0.9 10*3/uL (1.4-4.0); Lymphocytes % 19.8 % (21.3-54.2); Mean Corpuscular HGB Conc 30.5 GM/DL (32-36); Mean Corpuscular Volume 95.2 FL (87-102); Mean Platelet Volume 11.1 FL (9.6-12.0); Monocytes % 12.8 % (1.7-12.7); Neutrophils % 62.1 % (38.7-73.9); Platelet Count 120 T/CUMM (130-400); Red Blood Count 2.51 MC/CUMM (3.8-5.5); Red Cell Distribution Width 17.2 % (9.3-17.3); White Blood Count 4.8 T/CUMM (4-12)
[2020-04-06 06:30] LABS: Albumin 2.9 G/DL (3.4-5.0); Bilirubin,Total 1.2 MG/DL (0.2-1.0); Calcium 7.7 MG/DL (8.5-10.1); Osmolality,Calculated 277.2 MOS/KG (273-304); Total Protein 6.6 G/DL (6.4-8.3)
[2020-04-06 08:59] LABS: Hepatitis B Core IgM Quant 0.19 Index; Hepatitis B Surface Ag Quant 0.56 Index; Hepatitis B Surface Ag Result Negative (Negative); Hepatitis C Virus Ab Quant 0.08 Index; Hepatitis C Virus Ab Result Negative (Negative)
[2020-04-07] MEDS: hydrALAZINE 20 MG/1 ML VIAL IV PRN ×3 (04:39→16:36)
[2020-04-07] MEDS: diphenhydrAMINE CAP 25 MG CAPSULE PO PRN ×3 (09:07→21:42)
[2020-04-07 11:50] LABS: Basophils # 0.1 10*3/uL (0.0-0.2); Basophils % 1.1 % (0.0-0.8); Eosinophils # 0.2 10*3/uL (0.0-0.87); Eosinophils % 3.3 % (0.00-10.9); Hematocrit 25.4 VOL% (35.7-47.0); Hemoglobin 7.7 GM/DL (12.0-16.0); Immature Granulocytes % 0.2 %; Immature Granulocytes Absolute 0.01 #; Lymphocytes # 1.1 10*3/uL (1.4-4.0); Lymphocytes % 22.9 % (21.3-54.2); Mean Corpuscular HGB Conc 30.3 GM/DL (32-36); Mean Corpuscular Volume 95.8 FL (87-102); Mean Platelet Volume 11.3 FL (9.6-12.0); Monocytes % 13.1 % (1.7-12.7); Neutrophils % 59.4 % (38.7-73.9); Platelet Count 127 T/CUMM (130-400); Red Blood Count 2.65 MC/CUMM (3.8-5.5); Red Cell Distribution Width 16.8 % (9.3-17.3); White Blood Count 4.6 T/CUMM (4-12)
[2020-04-07 12:16] LABS: Calcium 8.4 MG/DL (8.5-10.1); Osmolality,Calculated 273.2 MOS/KG (273-304)
[2020-04-07] MEDS: LOSARTAN 50 MG TABLET PO SCH (12:33)
[2020-04-07] MEDS: carvediloL 25 MG TABLET PO SCH (21:41)
[2020-04-08] MEDS: hydrALAZINE 20 MG/1 ML VIAL IV PRN ×2 (00:50→13:14)
[2020-04-08 07:11] LABS: Basophils # 0.1 10*3/uL (0.0-0.2); Basophils % 2.1 % (0.0-0.8); Eosinophils # 0.2 10*3/uL (0.0-0.87); Eosinophils % 4.4 % (0.00-10.9); Hematocrit 24.3 VOL% (35.7-47.0); Hemoglobin 7.8 GM/DL (12.0-16.0); Immature Granulocytes % 0.3 %; Immature Granulocytes Absolute 0.01 #; Lymphocytes # 0.9 10*3/uL (1.4-4.0); Lymphocytes % 24.4 % (21.3-54.2); Mean Corpuscular HGB Conc 32.1 GM/DL (32-36); Mean Corpuscular Volume 93.1 FL (87-102); Mean Platelet Volume 11.4 FL (9.6-12.0); Monocytes % 13.8 % (1.7-12.7); Platelet Count 129 T/CUMM (130-400); Red Blood Count 2.61 MC/CUMM (3.8-5.5); Red Cell Distribution Width 16.7 % (9.3-17.3); White Blood Count 3.9 T/CUMM (4-12)
[2020-04-08 07:41] LABS: Calcium 8.6 MG/DL (8.5-10.1); Osmolality,Calculated 279.1 MOS/KG (273-304)
[2020-04-08] MEDS: diphenhydrAMINE CAP 25 MG CAPSULE PO PRN (09:51)
[2020-04-08] MEDS: LOSARTAN 50 MG TABLET PO SCH (09:51)
[2020-04-08] MEDS: carvediloL 25 MG TABLET PO SCH (09:51)
[2020-04-08] MEDS ORDERED: diphenhydrAMINE 2% CREAM 28 GM TUBE TOP PRN (10:32)
[2020-04-08 16:36] VITALS: BP 186/70
== END 2020-04-08 17:22 | disposition home health service (06) | DRG 947 ==
LOC: EDBD → EDUNIT# → N.ED 19:00 → N.EDINP 22:34 → SUATTDRO 22:34 → SUPCPDRO 22:34 → N.2E 04-06 01:00
PROVIDERS: ADMIT Internal Medicine; ATTEND Family Medicine

== ENCOUNTER 2021-01-17 12:39 | Inpatient (IN) ==
[2021-01-17 13:33] LABS: Basophils % 0.6 % (0.0-0.8); Eosinophils # 0.2 10*3/uL (0.0-0.87); Eosinophils % 3.6 % (0.00-10.9); Hematocrit 30.2 VOL% (35.7-47.0); Hemoglobin 9.2 GM/DL (12.0-16.0); Immature Granulocytes % 0.6 %; Immature Granulocytes Absolute 0.04 #; Lymphocytes # 1.2 10*3/uL (1.4-4.0); Lymphocytes % 17.1 % (21.3-54.2); Mean Corpuscular HGB Conc 30.5 GM/DL (32-36); Mean Corpuscular Volume 98.4 FL (87-102); Mean Platelet Volume 9.9 FL (9.6-12.0); Monocytes % 12.8 % (1.7-12.7); Neutrophils % 65.3 % (38.7-73.9); Platelet Count 129 T/CUMM (130-400); Red Blood Count 3.07 MC/CUMM (3.8-5.5); Red Cell Distribution Width 17.9 % (9.3-17.3); White Blood Count 6.7 T/CUMM (4-12)
[2021-01-17] MEDS ORDERED: ONDANSETRON 4 MG/2 ML VIAL IV STA (13:45)
[2021-01-17] MEDS ORDERED: HYDROmorphone 2 MG/1 ML VIAL IV STA (13:45)
[2021-01-17 13:47] LABS: Calcium 7.7 MG/DL (8.5-10.1); Osmolality,Calculated 297.3 MOS/KG (273-304); Potassium 4.2 MMOL/L (3.5-5.1)
[2021-01-17] MEDS ORDERED: GLUCAGON 1 MG VIAL IM PRN (16:26)
[2021-01-17] MEDS ORDERED: ZALEPLON 5 MG CAPSULE PO PRN (16:26)
[2021-01-17] MEDS ORDERED: DEXTROSE 50% 25 GM/50 ML VIAL IV PRN (16:26)
[2021-01-17] MEDS: HYDROmorphone 2 MG/1 ML VIAL IV PRN ×2 (17:40→21:47)
[2021-01-17] MEDS ORDERED: DOCUSATE SODIUM 100 MG CAPSULE PO PRN (20:33)
[2021-01-17] MEDS: hydrALAZINE 20 MG/1 ML VIAL IV PRN ×2 (21:24→22:48)
[2021-01-17] MEDS: GABAPENTIN 400 MG CAPSULE PO SCH (21:25)
[2021-01-17] MEDS: carvediloL 25 MG TABLET PO SCH (21:25)
[2021-01-17] MEDS: ONDANSETRON 4 MG/2 ML VIAL IV PRN (21:47)
[2021-01-18] MEDS: hydrALAZINE 20 MG/1 ML VIAL IV PRN (00:14)
[2021-01-18] MEDS: PANTOPRAZOLE 40 MG TABLET PO SCH (06:09)
[2021-01-18] MEDS: LEVOTHYROXINE 50 MCG TABLET PO SCH (06:09)
[2021-01-18 06:18] LABS: Basophils % 0.5 % (0.0-0.8); Eosinophils # 0.2 10*3/uL (0.0-0.87); Eosinophils % 2.3 % (0.00-10.9); Hematocrit 30.5 VOL% (35.7-47.0); Hemoglobin 9.3 GM/DL (12.0-16.0); Immature Granulocytes % 0.7 %; Immature Granulocytes Absolute 0.06 #; Lymphocytes # 1.1 10*3/uL (1.4-4.0); Lymphocytes % 12.2 % (21.3-54.2); Mean Corpuscular HGB Conc 30.5 GM/DL (32-36); Mean Corpuscular Volume 96.8 FL (87-102); Mean Platelet Volume 10.6 FL (9.6-12.0); Neutrophils % 74.3 % (38.7-73.9); Platelet Count 138 T/CUMM (130-400); Red Blood Count 3.15 MC/CUMM (3.8-5.5); Red Cell Distribution Width 17.9 % (9.3-17.3); White Blood Count 8.8 T/CUMM (4-12)
[2021-01-18 07:13] LABS: Albumin 3.1 G/DL (3.4-5.0); Calcium 7.6 MG/DL (8.5-10.1); Osmolality,Calculated 295.7 MOS/KG (273-304); Potassium 5.9 MMOL/L (3.5-5.1); Total Protein 6.9 G/DL (6.4-8.2)
[2021-01-18] MEDS: carvediloL 25 MG TABLET PO SCH ×2 (09:58→16:58)
[2021-01-18] MEDS: GABAPENTIN 400 MG CAPSULE PO SCH ×2 (09:58→21:05)
[2021-01-18] MEDS: HYDROmorphone 2 MG/1 ML VIAL IV PRN ×2 (16:58→21:06)
[2021-01-18] MEDS: ONDANSETRON 4 MG/2 ML VIAL IV PRN (21:06)
[2021-01-19] MEDS: PANTOPRAZOLE 40 MG TABLET PO SCH (05:42)
[2021-01-19] MEDS: LEVOTHYROXINE 50 MCG TABLET PO SCH (05:42)
[2021-01-19 06:30] LABS: Basophils # 0.1 10*3/uL (0.0-0.2); Basophils % 0.7 % (0.0-0.8); Eosinophils # 0.2 10*3/uL (0.0-0.87); Eosinophils % 2.3 % (0.00-10.9); Immature Granulocytes % 0.5 %; Immature Granulocytes Absolute 0.04 #; Lymphocytes # 1.4 10*3/uL (1.4-4.0); Lymphocytes % 19.3 % (21.3-54.2); Mean Corpuscular Volume 95.4 FL (87-102); Mean Platelet Volume 10.5 FL (9.6-12.0); Monocytes % 10.7 % (1.7-12.7); Neutrophils % 66.5 % (38.7-73.9); Platelet Count 122 T/CUMM (130-400); Red Blood Count 3.04 MC/CUMM (3.8-5.5); Red Cell Distribution Width 17.5 % (9.3-17.3); White Blood Count 7.4 T/CUMM (4-12)
[2021-01-19 06:57] LABS: Calcium 7.7 MG/DL (8.5-10.1); Osmolality,Calculated 275.4 MOS/KG (273-304); Potassium 4.7 MMOL/L (3.5-5.1)
[2021-01-19] MEDS: carvediloL 25 MG TABLET PO SCH (08:37)
[2021-01-19] MEDS: GABAPENTIN 400 MG CAPSULE PO SCH ×2 (08:37→21:26)
[2021-01-19] MEDS ORDERED: NITROGLYCERIN SL 0.4 MG TABLET SL ONE (10:12)
[2021-01-19] MEDS ORDERED: EPOETIN ALFA-EPBX 2,000 UNIT/ML VIAL IV PRN (10:57)
[2021-01-19] MEDS: NITROGLYCERIN SL 0.4 MG TABLET SL PRN ×2 (16:25→16:43)
[2021-01-19] MEDS ORDERED: ACETAMINOPHEN 325 MG TABLET PO PRN (16:46)
[2021-01-19] MEDS ORDERED: ALUM/MAG/SIMETH/LIDO VISC 1:1 30 ML BOTTLE PO ONE (17:00)
[2021-01-19] MEDS: carvediloL 12.5 MG TABLET PO SCH (18:15)
[2021-01-20 05:25] LABS: Basophils % 0.6 % (0.0-0.8); Eosinophils # 0.2 10*3/uL (0.0-0.87); Eosinophils % 2.5 % (0.00-10.9); Hematocrit 26.2 VOL% (35.7-47.0); Hemoglobin 8.3 GM/DL (12.0-16.0); Immature Granulocytes % 0.3 %; Immature Granulocytes Absolute 0.02 #; Lymphocytes # 1.2 10*3/uL (1.4-4.0); Lymphocytes % 19.2 % (21.3-54.2); Mean Corpuscular HGB Conc 31.7 GM/DL (32-36); Mean Corpuscular Volume 94.6 FL (87-102); Mean Platelet Volume 11.3 FL (9.6-12.0); Monocytes % 11.9 % (1.7-12.7); Neutrophils % 65.5 % (38.7-73.9); Platelet Count 116 T/CUMM (130-400); Red Blood Count 2.77 MC/CUMM (3.8-5.5); White Blood Count 6.3 T/CUMM (4-12)
[2021-01-20 05:39] LABS: Calcium 7.4 MG/DL (8.5-10.1); Osmolality,Calculated 284.1 MOS/KG (273-304)
[2021-01-20 05:43] LABS: Hypochromasia 1+; Microcytosis 1+
[2021-01-20] MEDS: PANTOPRAZOLE 40 MG TABLET PO SCH (06:21)
[2021-01-20] MEDS: LEVOTHYROXINE 50 MCG TABLET PO SCH (06:21)
[2021-01-20] MEDS: carvediloL 12.5 MG TABLET PO SCH (08:16)
[2021-01-20] MEDS: GABAPENTIN 400 MG CAPSULE PO SCH ×2 (08:17→20:58)
[2021-01-20 12:27] LABS: Free T4 (Free Thyroxine) 0.67 NG/DL (0.76-1.46); Thyroid Stimulating Hormone 1.35 uIU/ml (0.358-3.74)
[2021-01-20] MEDS: carvediloL 3.125 MG TABLET PO SCH ×2 (16:21→16:35)
[2021-01-20] MEDS ORDERED: carvediloL 6.25 MG TABLET PO SCH (17:00)
[2021-01-21 05:08] LABS: Basophils # 0.1 10*3/uL (0.0-0.2); Basophils % 0.9 % (0.0-0.8); Eosinophils # 0.2 10*3/uL (0.0-0.87); Eosinophils % 3.1 % (0.00-10.9); Hematocrit 26.6 VOL% (35.7-47.0); Hemoglobin 8.4 GM/DL (12.0-16.0); Immature Granulocytes % 0.4 %; Immature Granulocytes Absolute 0.02 #; Lymphocytes # 1.1 10*3/uL (1.4-4.0); Lymphocytes % 19.9 % (21.3-54.2); Mean Corpuscular HGB Conc 31.6 GM/DL (32-36); Mean Platelet Volume 10.4 FL (9.6-12.0); Monocytes % 11.4 % (1.7-12.7); Neutrophils % 64.3 % (38.7-73.9); Platelet Count 145 T/CUMM (130-400); Red Blood Count 2.77 MC/CUMM (3.8-5.5); Red Cell Distribution Width 16.5 % (9.3-17.3); White Blood Count 5.4 T/CUMM (4-12)
[2021-01-21 05:16] LABS: Calcium 7.6 MG/DL (8.5-10.1); Osmolality,Calculated 268.7 MOS/KG (273-304); Potassium 4.8 MMOL/L (3.5-5.1)
[2021-01-21] MEDS: PANTOPRAZOLE 40 MG TABLET PO SCH (05:33)
[2021-01-21] MEDS: LEVOTHYROXINE 50 MCG TABLET PO SCH (05:33)
[2021-01-21] MEDS: carvediloL 3.125 MG TABLET PO SCH ×3 (08:13→16:30)
[2021-01-21] MEDS: GABAPENTIN 400 MG CAPSULE PO SCH ×2 (08:13→20:54)
[2021-01-21] MEDS ORDERED: ceFAZolin 1,000 MG in SYRINGE 1 EACH IV ONE (09:30)
[2021-01-22 05:37] LABS: Basophils # 0.1 10*3/uL (0.0-0.2); Basophils % 1.3 % (0.0-0.8); Eosinophils # 0.2 10*3/uL (0.0-0.87); Eosinophils % 2.6 % (0.00-10.9); Hematocrit 26.2 VOL% (35.7-47.0); Hemoglobin 8.4 GM/DL (12.0-16.0); Immature Granulocytes % 0.3 %; Immature Granulocytes Absolute 0.02 #; Lymphocytes # 1.3 10*3/uL (1.4-4.0); Lymphocytes % 21.5 % (21.3-54.2); Mean Corpuscular HGB Conc 32.1 GM/DL (32-36); Mean Corpuscular Volume 94.2 FL (87-102); Mean Platelet Volume 10.7 FL (9.6-12.0); Monocytes % 9.8 % (1.7-12.7); Neutrophils % 64.5 % (38.7-73.9); Platelet Count 171 T/CUMM (130-400); Red Blood Count 2.78 MC/CUMM (3.8-5.5); Red Cell Distribution Width 16.1 % (9.3-17.3); White Blood Count 6.1 T/CUMM (4-12)
[2021-01-22 05:54] LABS: Calcium 7.7 MG/DL (8.5-10.1); Osmolality,Calculated 273.7 MOS/KG (273-304); Potassium 5.6 MMOL/L (3.5-5.1)
[2021-01-22] MEDS ORDERED: ceFAZolin 1,000 MG in SYRINGE 1 EACH IV ONE (06:00)
[2021-01-22] MEDS: LEVOTHYROXINE 75 MCG TABLET PO SCH (06:44)
[2021-01-22] MEDS: PANTOPRAZOLE 40 MG TABLET PO SCH (06:44)
[2021-01-22] MEDS: carvediloL 3.125 MG TABLET PO SCH ×2 (08:07→17:39)
[2021-01-22] MEDS: LACTATED RINGERS 1,000 ML IV SCH (08:28)
[2021-01-22] MEDS: GABAPENTIN 400 MG CAPSULE PO SCH ×2 (08:29→21:50)
[2021-01-22 08:32] LABS: HIV Antigen/Antibody Result Nonreactive (Nonreactive); Hepatitis B Surface Ag Quant < 0.10 Index; Hepatitis B Surface Ag Result Non-Reactive (NonReactive); Hepatitis C Virus Ab Quant 0.04 Index; Hepatitis C Virus Ab Result Non-Reactive (NonReactive)
[2021-01-22] MEDS ORDERED: MIDAZOLAM 2 MG/2 ML VIAL ONE (10:33)
[2021-01-22] MEDS ORDERED: fentaNYL 100 MCG/2 ML VIAL ONE (10:33)
[2021-01-22] MEDS ORDERED: ePHEDrine 50 MG/ML VIAL ONE (10:34)
[2021-01-22] MEDS ORDERED: PHENYLEPHRINE DRIP 20 MG/250 ML PREMIX IV ONE (10:38)
[2021-01-22] MEDS ORDERED: GLYCOPYRROLATE 0.4 MG/2 ML VIAL ONE (10:38)
[2021-01-22] MEDS ORDERED: LIDOCAINE 2% 5 ML VIAL ONE (10:38)
[2021-01-22] MEDS ORDERED: NEOSTIGMINE 10 MG/10 ML VIAL ONE (10:38)
[2021-01-22] MEDS ORDERED: ROCURONIUM 50 MG/5 ML VIAL IV ONE (10:38)
[2021-01-22] MEDS ORDERED: ETOMIDATE 40 MG/20 ML VIAL IV ONE (10:38)
[2021-01-22] MEDS ORDERED: propofoL 200 MG/20 ML VIAL IV ONE (10:38)
[2021-01-22] MEDS ORDERED: SEVOFLURANE 1 UNIT/15 MINUTE INH ONE (10:39)
[2021-01-22] MEDS ORDERED: SODIUM CHLORIDE 0.9% 250 ML IV ONE (10:39)
[2021-01-22] MEDS: hydrALAZINE 20 MG/1 ML VIAL IV PRN (23:06)
[2021-01-23] MEDS: LACTATED RINGERS 1,000 ML IV SCH (05:30)
[2021-01-23 05:38] LABS: Basophils # 0.1 10*3/uL (0.0-0.2); Eosinophils # 0.2 10*3/uL (0.0-0.87); Eosinophils % 2.7 % (0.00-10.9); Hematocrit 26.8 VOL% (35.7-47.0); Hemoglobin 8.6 GM/DL (12.0-16.0); Immature Granulocytes % 0.2 %; Immature Granulocytes Absolute 0.01 #; Lymphocytes % 15.6 % (21.3-54.2); Mean Corpuscular HGB Conc 32.1 GM/DL (32-36); Monocytes % 10.4 % (1.7-12.7); Neutrophils % 70.1 % (38.7-73.9); Platelet Count 176 T/CUMM (130-400); Red Blood Count 2.85 MC/CUMM (3.8-5.5); Red Cell Distribution Width 16.1 % (9.3-17.3); White Blood Count 6.3 T/CUMM (4-12)
[2021-01-23 06:27] LABS: Calcium 8.1 MG/DL (8.5-10.1); Osmolality,Calculated 272.4 MOS/KG (273-304); Potassium 5.1 MMOL/L (3.5-5.1)
[2021-01-23] MEDS: LEVOTHYROXINE 75 MCG TABLET PO SCH (06:31)
[2021-01-23] MEDS: PANTOPRAZOLE 40 MG TABLET PO SCH (06:31)
[2021-01-23] MEDS: GABAPENTIN 400 MG CAPSULE PO SCH ×2 (08:20→21:26)
[2021-01-23] MEDS: carvediloL 3.125 MG TABLET PO SCH ×2 (08:20→17:49)
[2021-01-23] MEDS: hydrALAZINE 10 MG TABLET PO SCH (21:26)
[2021-01-24] MEDS: LACTATED RINGERS 1,000 ML IV SCH (05:06)
[2021-01-24 06:03] LABS: Basophils # 0.1 10*3/uL (0.0-0.2); Basophils % 1.2 % (0.0-0.8); Eosinophils # 0.2 10*3/uL (0.0-0.87); Eosinophils % 3.7 % (0.00-10.9); Hematocrit 27.2 VOL% (35.7-47.0); Hemoglobin 8.7 GM/DL (12.0-16.0); Immature Granulocytes % 0.4 %; Immature Granulocytes Absolute 0.02 #; Lymphocytes # 1.2 10*3/uL (1.4-4.0); Lymphocytes % 21.8 % (21.3-54.2); Mean Corpuscular Volume 94.4 FL (87-102); Mean Platelet Volume 9.7 FL (9.6-12.0); Monocytes % 10.2 % (1.7-12.7); Neutrophils % 62.7 % (38.7-73.9); Platelet Count 165 T/CUMM (130-400); Red Blood Count 2.88 MC/CUMM (3.8-5.5); White Blood Count 5.7 T/CUMM (4-12)
[2021-01-24 06:16] LABS: Calcium 8.2 MG/DL (8.5-10.1); Osmolality,Calculated 274.1 MOS/KG (273-304); Potassium 4.9 MMOL/L (3.5-5.1)
[2021-01-24] MEDS: PANTOPRAZOLE 40 MG TABLET PO SCH (06:51)
[2021-01-24] MEDS: LEVOTHYROXINE 75 MCG TABLET PO SCH (06:51)
[2021-01-24] MEDS: carvediloL 3.125 MG TABLET PO SCH (08:46)
[2021-01-24] MEDS: GABAPENTIN 400 MG CAPSULE PO SCH (08:49)
[2021-01-24] MEDS: hydrALAZINE 10 MG TABLET PO SCH (08:49)
[2021-01-24 13:33] VITALS: BP 183/75
== END 2021-01-24 15:15 | disposition home or self-care (01) | DRG 252 ==
LOC: N.ED 12:39 → N.EDINP 12:39 → SUATTDRO 16:08 → N.EDINP 19:44 → N.3E 19:53 → N.TELEN 01-19 10:56 → SUATTDRO 01-20 07:55
PROVIDERS: ADMIT Internal Medicine; ATTEND Internal Medicine

== ENCOUNTER 2022-07-09 21:22 | Inpatient (IN) ==
[2022-07-09] MEDS ORDERED: PIPERACILLIN IV STA (21:47)
[2022-07-09] MEDS ORDERED: SODIUM CHLORIDE 0.9% IV STA (21:47)
[2022-07-09] MEDS ORDERED: ONDANSETRON 4 MG/2 ML VIAL IV STA (21:47)
[2022-07-09] MEDS ORDERED: ASPIRIN 325 MG TABLET PO STA (21:47)
[2022-07-09] MEDS ORDERED: TAZOBACTAM IV STA (21:47)
[2022-07-09] MEDS ORDERED: MORPHINE 2 MG/1 ML SYRINGE IV STA (21:47)
[2022-07-09] MEDS ORDERED: methylPREDNISolone SOD SUC 125 MG/2 ML VIAL IV STA (21:47)
[2022-07-09] MEDS ORDERED: PIPERACILLIN/TAZOBACTAM 3,375 MG in SODIUM CHLORIDE 0.9% 100 ML IV STA (21:53)
[2022-07-09] MEDS ORDERED: ALBUTEROL NEB SOLN 5 MG/ML 20 ML/BOTTLE CONT NEB SCH (22:00)
[2022-07-09 22:48] LABS: Basophils # 0.1 10*3/uL (0.0-0.2); Basophils % 0.7 % (0.0-0.8); Eosinophils # 0.1 10*3/uL (0.0-0.87); Eosinophils % 0.7 % (0.00-10.9); Hematocrit 29.3 VOL% (35.7-47.0); Hemoglobin 8.9 GM/DL (12.0-16.0); Immature Granulocytes % 0.7 %; Immature Granulocytes Absolute 0.06 #; Lymphocytes # 1.5 10*3/uL (1.4-4.0); Lymphocytes % 17.7 % (21.3-54.2); Mean Corpuscular HGB Conc 30.4 GM/DL (32-36); Mean Corpuscular Volume 99.7 FL (87-102); Mean Platelet Volume 9.8 FL (9.6-12.0); Monocytes # 1.3 10*3/uL (0.11-0.8); Monocytes % 15.4 % (1.7-12.7); Neutrophils % 64.8 % (38.7-73.9); Platelet Count 230 T/CUMM (130-400); Red Blood Count 2.94 MC/CUMM (3.8-5.5); Red Cell Distribution Width 15.6 % (9.3-17.3); White Blood Count 8.6 T/CUMM (4-12)
[2022-07-09 22:58] LABS: PT Patient Result 10.8 SECS (10.1-12.1)
[2022-07-09 23:11] LABS: Albumin 3.4 G/DL (3.4-5.0); Bilirubin,Total 0.5 MG/DL (0.20-1.00); Calcium 9.1 MG/DL (8.5-10.1); Osmolality,Calculated 281.5 MOS/KG (273-304); Potassium 3.7 MMOL/L (3.5-5.1); Total Protein 7.4 G/DL (6.4-8.2)
[2022-07-10] MEDS ORDERED: DEXTROSE 10% 250 ML BAG IV PRN (01:07)
[2022-07-10] MEDS ORDERED: ONDANSETRON 4 MG/2 ML VIAL IV PRN (01:07)
[2022-07-10] MEDS ORDERED: ACETAMINOPHEN 325 MG TABLET PO PRN (01:07)
[2022-07-10] MEDS ORDERED: hydrALAZINE 20 MG/1 ML VIAL IV PRN (01:07)
[2022-07-10] MEDS ORDERED: NICOTINE 21 MG/24 HR PATCH TRANSDERM PRN (01:07)
[2022-07-10] MEDS ORDERED: GLUCAGON 1 MG VIAL IM PRN (01:07)
[2022-07-10] MEDS ORDERED: diphenhydrAMINE CAP 25 MG CAPSULE PO PRN (01:07)
[2022-07-10] MEDS: guaiFENesin/DM ER 600-30 MG TABLET PO PRN ×2 (01:29→20:39)
[2022-07-10 05:34] LABS: Basophils % 0.2 % (0.0-0.8); Hematocrit 26.9 VOL% (35.7-47.0); Hemoglobin 8.3 GM/DL (12.0-16.0); Immature Granulocytes % 0.9 %; Immature Granulocytes Absolute 0.07 #; Lymphocytes # 0.5 10*3/uL (1.4-4.0); Lymphocytes % 5.7 % (21.3-54.2); Mean Corpuscular HGB Conc 30.9 GM/DL (32-36); Mean Corpuscular Volume 98.9 FL (87-102); Mean Platelet Volume 9.6 FL (9.6-12.0); Monocytes # 0.1 10*3/uL (0.11-0.8); Monocytes % 1.5 % (1.7-12.7); Neutrophils % 91.7 % (38.7-73.9); Platelet Count 211 T/CUMM (130-400); Red Blood Count 2.72 MC/CUMM (3.8-5.5); Red Cell Distribution Width 15.5 % (9.3-17.3); White Blood Count 8.1 T/CUMM (4-12)
[2022-07-10 06:32] LABS: Eosinophils 1 % (0-10); Hypochromia Slight; Lymphocytes 2 % (20-55); Microcytosis Slight; Platelet Estimate Adequate; Total Cells Counted 100
[2022-07-10] MEDS: ALBUTEROL/IPRATROPIUM 3 ML NEB RESP TX SCH ×3 (06:47→20:39)
[2022-07-10] MEDS ORDERED: SODIUM CHLORIDE 0.9% 250 ML IV ONE (09:15)
[2022-07-10] MEDS: HEPARIN 5,000 UNIT/1 ML VIAL SUBCUT SCH ×2 (09:47→20:42)
[2022-07-10] MEDS: ZALEPLON 5 MG CAPSULE PO PRN (20:39)
[2022-07-10] MEDS: DOCUSATE SODIUM 100 MG CAPSULE PO SCH (20:39)
[2022-07-10] MEDS: PANTOPRAZOLE 40 MG TABLET PO SCH (20:43)
[2022-07-10] MEDS: cefTRIAXone 1,000 MG in SODIUM CHLORIDE 0.9% 100 ML IV SCH (22:14)
[2022-07-10] MEDS: AZITHROMYCIN INJ 500 MG in SODIUM CHLORIDE 0.9% 250 ML IV SCH (23:11)
[2022-07-11] MEDS: ALBUTEROL/IPRATROPIUM 3 ML NEB RESP TX SCH ×4 (00:33→19:51)
[2022-07-11 06:53] LABS: Basophils % 0.3 % (0.0-0.8); Eosinophils % 0.3 % (0.00-10.9); Hematocrit 25.7 VOL% (35.7-47.0); Hemoglobin 7.9 GM/DL (12.0-16.0); Immature Granulocytes % 0.8 %; Immature Granulocytes Absolute 0.06 #; Lymphocytes # 1.3 10*3/uL (1.4-4.0); Lymphocytes % 16.4 % (21.3-54.2); Mean Corpuscular HGB Conc 30.7 GM/DL (32-36); Mean Platelet Volume 9.9 FL (9.6-12.0); Monocytes % 12.5 % (1.7-12.7); Neutrophils % 69.7 % (38.7-73.9); Platelet Count 249 T/CUMM (130-400); Red Blood Count 2.57 MC/CUMM (3.8-5.5); Red Cell Distribution Width 15.5 % (9.3-17.3); White Blood Count 7.7 T/CUMM (4-12)
[2022-07-11 07:01] LABS: Calcium 8.8 MG/DL (8.5-10.1); Osmolality,Calculated 281.5 MOS/KG (273-304); Potassium 3.4 MMOL/L (3.5-5.1)
[2022-07-11] MEDS: guaiFENesin/DM ER 600-30 MG TABLET PO PRN (09:49)
[2022-07-11] MEDS: cefTRIAXone 1,000 MG in SODIUM CHLORIDE 0.9% 100 ML IV SCH (09:50)
[2022-07-11] MEDS: PANTOPRAZOLE 40 MG TABLET PO SCH (09:50)
[2022-07-11] MEDS: DOCUSATE SODIUM 100 MG CAPSULE PO SCH ×2 (09:50→20:48)
[2022-07-11] MEDS: HEPARIN 5,000 UNIT/1 ML VIAL SUBCUT SCH ×2 (09:51→20:47)
[2022-07-11] MEDS: AZITHROMYCIN INJ 500 MG in SODIUM CHLORIDE 0.9% 250 ML IV SCH (09:51)
[2022-07-11] MEDS: BENZONATATE 100 MG CAPSULE PO PRN ×2 (15:47→23:27)
[2022-07-11] MEDS: SEVELAMER CARBONATE 800 MG TABLET PO SCH (18:22)
[2022-07-11] MEDS: ATORVASTATIN 20 MG TABLET PO SCH (20:48)
[2022-07-11] MEDS: guaiFENesin/DM ER 600-30 MG TABLET PO SCH (20:48)
[2022-07-12] MEDS: ALBUTEROL/IPRATROPIUM 3 ML NEB RESP TX SCH ×3 (08:30→20:31)
[2022-07-12] MEDS: cefTRIAXone 1,000 MG in SODIUM CHLORIDE 0.9% 100 ML IV SCH (09:45)
[2022-07-12] MEDS: LEVOTHYROXINE 50 MCG TABLET PO SCH (09:49)
[2022-07-12] MEDS: SEVELAMER CARBONATE 800 MG TABLET PO SCH ×3 (09:49→17:54)
[2022-07-12] MEDS: guaiFENesin/DM ER 600-30 MG TABLET PO SCH ×2 (09:49→21:35)
[2022-07-12] MEDS: DOCUSATE SODIUM 100 MG CAPSULE PO SCH ×2 (09:50→21:36)
[2022-07-12] MEDS: PANTOPRAZOLE 40 MG TABLET PO SCH (09:50)
[2022-07-12] MEDS: HEPARIN 5,000 UNIT/1 ML VIAL SUBCUT SCH ×2 (09:51→21:35)
[2022-07-12] MEDS: AZITHROMYCIN INJ 500 MG in SODIUM CHLORIDE 0.9% 250 ML IV SCH (10:28)
[2022-07-12] MEDS: VALSARTAN 80 MG TABLET PO SCH (11:58)
[2022-07-12] MEDS: BENZONATATE 100 MG CAPSULE PO SCH ×2 (14:45→21:36)
[2022-07-12] MEDS: ATORVASTATIN 20 MG TABLET PO SCH (21:36)
[2022-07-13] MEDS: ALBUTEROL/IPRATROPIUM 3 ML NEB RESP TX SCH ×2 (00:54→07:00)
[2022-07-13 05:41] LABS: Basophils % 0.6 % (0.0-0.8); Eosinophils % 0.7 % (0.00-10.9); Hematocrit 25.5 VOL% (35.7-47.0); Immature Granulocytes % 1.7 %; Immature Granulocytes Absolute 0.09 #; Lymphocytes % 19.2 % (21.3-54.2); Mean Corpuscular HGB Conc 31.4 GM/DL (32-36); Mean Corpuscular Volume 98.5 FL (87-102); Mean Platelet Volume 9.3 FL (9.6-12.0); Monocytes # 0.6 10*3/uL (0.11-0.8); Neutrophils % 66.8 % (38.7-73.9); Platelet Count 263 T/CUMM (130-400); Red Blood Count 2.59 MC/CUMM (3.8-5.5); Red Cell Distribution Width 15.7 % (9.3-17.3); White Blood Count 5.4 T/CUMM (4-12)
[2022-07-13 05:57] LABS: Calcium 8.6 MG/DL (8.5-10.1); Osmolality,Calculated 279.1 MOS/KG (273-304); Potassium 3.6 MMOL/L (3.5-5.1)
[2022-07-13] MEDS: methylPREDNISolone SOD SUC 40 MG/1 ML VIAL IV SCH ×2 (13:10→17:17)
[2022-07-13] MEDS: SEVELAMER CARBONATE 800 MG TABLET PO SCH ×3 (13:10→17:15)
[2022-07-13] MEDS: BENZONATATE 100 MG CAPSULE PO SCH ×3 (13:10→20:05)
[2022-07-13] MEDS: guaiFENesin/DM ER 600-30 MG TABLET PO SCH ×2 (14:40→20:05)
[2022-07-13] MEDS: LEVOTHYROXINE 50 MCG TABLET PO SCH (14:41)
[2022-07-13] MEDS: VALSARTAN 80 MG TABLET PO SCH (14:41)
[2022-07-13] MEDS: DOCUSATE SODIUM 100 MG CAPSULE PO SCH ×2 (14:42→20:05)
[2022-07-13] MEDS: PANTOPRAZOLE 40 MG TABLET PO SCH (14:42)
[2022-07-13] MEDS: HEPARIN 5,000 UNIT/1 ML VIAL SUBCUT SCH ×2 (14:43→20:05)
[2022-07-13] MEDS: cefTRIAXone 1,000 MG in SODIUM CHLORIDE 0.9% 100 ML IV SCH (15:03)
[2022-07-13] MEDS: AZITHROMYCIN INJ 500 MG in SODIUM CHLORIDE 0.9% 250 ML IV SCH (15:51)
[2022-07-13] MEDS: ATORVASTATIN 20 MG TABLET PO SCH (20:05)
[2022-07-14] MEDS: ALBUTEROL/IPRATROPIUM 3 ML NEB RESP TX SCH ×4 (00:35→19:35)
[2022-07-14] MEDS: methylPREDNISolone SOD SUC 40 MG/1 ML VIAL IV SCH ×3 (00:59→17:38)
[2022-07-14 05:19] LABS: Basophils % 0.1 % (0.0-0.8); Hematocrit 27.3 VOL% (35.7-47.0); Hemoglobin 8.6 GM/DL (12.0-16.0); Immature Granulocytes % 1.3 %; Immature Granulocytes Absolute 0.09 #; Lymphocytes # 0.5 10*3/uL (1.4-4.0); Lymphocytes % 7.3 % (21.3-54.2); Mean Corpuscular HGB Conc 31.5 GM/DL (32-36); Mean Corpuscular Volume 99.3 FL (87-102); Mean Platelet Volume 9.5 FL (9.6-12.0); Monocytes # 0.1 10*3/uL (0.11-0.8); Monocytes % 0.9 % (1.7-12.7); Neutrophils % 90.4 % (38.7-73.9); Platelet Count 295 T/CUMM (130-400); Red Blood Count 2.75 MC/CUMM (3.8-5.5); Red Cell Distribution Width 15.5 % (9.3-17.3)
[2022-07-14 05:43] LABS: Calcium 9.1 MG/DL (8.5-10.1); Osmolality,Calculated 276.1 MOS/KG (273-304); Potassium 4.7 MMOL/L (3.5-5.1)
[2022-07-14] MEDS: cefTRIAXone 1,000 MG in SODIUM CHLORIDE 0.9% 100 ML IV SCH (08:44)
[2022-07-14] MEDS: guaiFENesin/DM ER 600-30 MG TABLET PO SCH ×2 (08:46→20:14)
[2022-07-14] MEDS: VALSARTAN 80 MG TABLET PO SCH (08:46)
[2022-07-14] MEDS: BENZONATATE 100 MG CAPSULE PO SCH ×3 (08:46→20:15)
[2022-07-14] MEDS: LEVOTHYROXINE 50 MCG TABLET PO SCH (08:47)
[2022-07-14] MEDS: PANTOPRAZOLE 40 MG TABLET PO SCH (08:47)
[2022-07-14] MEDS: HEPARIN 5,000 UNIT/1 ML VIAL SUBCUT SCH ×2 (08:47→20:17)
[2022-07-14] MEDS: SEVELAMER CARBONATE 800 MG TABLET PO SCH ×3 (08:48→17:39)
[2022-07-14] MEDS: AZITHROMYCIN INJ 500 MG in SODIUM CHLORIDE 0.9% 250 ML IV SCH (09:17)
[2022-07-14] MEDS: DOCUSATE SODIUM 100 MG CAPSULE PO SCH ×2 (09:20→20:15)
[2022-07-14] MEDS: ATORVASTATIN 20 MG TABLET PO SCH (20:15)
[2022-07-14] MEDS: guaiFENesin 200 MG/10 ML UDCUP PO PRN (21:57)
[2022-07-14] MEDS: ZALEPLON 5 MG CAPSULE PO PRN (23:45)
[2022-07-15] MEDS: methylPREDNISolone SOD SUC 40 MG/1 ML VIAL IV SCH ×2 (00:43→10:51)
[2022-07-15] MEDS: ALBUTEROL/IPRATROPIUM 3 ML NEB RESP TX SCH ×3 (01:47→13:37)
[2022-07-15 05:12] LABS: Basophils % 0.2 % (0.0-0.8); Hematocrit 24.3 VOL% (35.7-47.0); Hemoglobin 7.8 GM/DL (12.0-16.0); Immature Granulocytes % 0.9 %; Immature Granulocytes Absolute 0.12 #; Lymphocytes # 0.6 10*3/uL (1.4-4.0); Lymphocytes % 4.7 % (21.3-54.2); Mean Corpuscular HGB Conc 32.1 GM/DL (32-36); Mean Corpuscular Volume 98.4 FL (87-102); Mean Platelet Volume 9.5 FL (9.6-12.0); Monocytes # 0.3 10*3/uL (0.11-0.8); Monocytes % 2.1 % (1.7-12.7); Neutrophils % 92.1 % (38.7-73.9); Platelet Count 295 T/CUMM (130-400); Red Blood Count 2.47 MC/CUMM (3.8-5.5); Red Cell Distribution Width 15.5 % (9.3-17.3); White Blood Count 12.7 T/CUMM (4-12)
[2022-07-15] MEDS: guaiFENesin 200 MG/10 ML UDCUP PO PRN (05:23)
[2022-07-15 05:31] LABS: Calcium 9.6 MG/DL (8.5-10.1); Osmolality,Calculated 277.4 MOS/KG (273-304); Potassium 4.8 MMOL/L (3.5-5.1)
[2022-07-15 05:35] LABS: Band Neutrophils 1 % (0-10); Hypochromia Slight; Lymphocytes 3 % (20-55); Microcytosis Slight; Total Cells Counted 100
[2022-07-15 05:36] LABS: Platelet Estimate Normal
[2022-07-15] MEDS: cefTRIAXone 1,000 MG in SODIUM CHLORIDE 0.9% 100 ML IV SCH (09:00)
[2022-07-15] MEDS: SEVELAMER CARBONATE 800 MG TABLET PO SCH ×2 (10:51→13:13)
[2022-07-15] MEDS: BENZONATATE 100 MG CAPSULE PO SCH (10:51)
[2022-07-15] MEDS: HEPARIN 5,000 UNIT/1 ML VIAL SUBCUT SCH (10:52)
[2022-07-15] MEDS: VALSARTAN 80 MG TABLET PO SCH (12:09)
[2022-07-15] MEDS: DOCUSATE SODIUM 100 MG CAPSULE PO SCH (12:09)
[2022-07-15] MEDS: guaiFENesin/DM ER 600-30 MG TABLET PO SCH (12:09)
[2022-07-15] MEDS: LEVOTHYROXINE 50 MCG TABLET PO SCH (12:10)
[2022-07-15] MEDS: PANTOPRAZOLE 40 MG TABLET PO SCH (12:10)
[2022-07-15 13:11] VITALS: BP 158/76
[2022-07-15] MEDS ORDERED: BENZONATATE 100 MG CAPSULE PO PRN (13:32)
[2022-07-15] MEDS ORDERED: guaiFENesin/DM ER 600-30 MG TABLET PO PRN (13:32)
[2022-07-15] MEDS ORDERED: DOXYCYCLINE HYCLATE 100 MG CAPSULE PO SCH (21:00)
[2022-07-16] MEDS ORDERED: predniSONE 20 MG TABLET PO SCH (09:00)
== END 2022-07-15 14:35 | disposition home health service (06) | DRG 193 ==
LOC: EDBD → EDUNIT# → N.2W 21:22 → N.ED 21:22 → N.2W 07-10 02:35 → SUATTDRO 07-10 12:19 → N.5E 07-11 20:51
PROVIDERS: ADMIT Internal Medicine; ATTEND Hospitalist

== ENCOUNTER 2022-08-29 03:20 | Observation (INO) ==
[2022-08-29] MEDS ORDERED: MORPHINE 2 MG/1 ML SYRINGE IV STA (03:39)
[2022-08-29] MEDS ORDERED: ALUM/MAG/SIMETH/LIDO VISC 1:1 30 ML BOTTLE PO STA (03:39)
[2022-08-29] MEDS ORDERED: ONDANSETRON 4 MG/2 ML VIAL IV STA (03:39)
[2022-08-29 03:51] LABS: Basophils # 0.1 10*3/uL (0.0-0.2); Basophils % 1.4 % (0.0-0.8); Eosinophils # 0.1 10*3/uL (0.0-0.87); Eosinophils % 3.3 % (0.00-10.9); Hemoglobin 10.5 GM/DL (12.0-16.0); Immature Granulocytes % 0.5 %; Immature Granulocytes Absolute 0.02 #; Mean Corpuscular Volume 94.6 FL (87-102); Monocytes # 0.7 10*3/uL (0.11-0.8); Monocytes % 15.8 % (1.7-12.7); Platelet Count 205 T/CUMM (130-400); Red Cell Distribution Width 17.4 % (9.3-17.3); White Blood Count 4.3 T/CUMM (4-12)
[2022-08-29 04:15] LABS: Eosinophils 2 % (0-10); Lymphocytes 30 % (20-55); Platelet Estimate Normal; Target Cells 1+; Total Cells Counted 100
[2022-08-29 04:18] LABS: Albumin 3.1 G/DL (3.4-5.0); Bilirubin,Total 0.5 MG/DL (0.20-1.00); Calcium 8.7 MG/DL (8.5-10.1); Osmolality,Calculated 282.1 MOS/KG (273-304); Potassium 3.2 MMOL/L (3.5-5.1); Total Protein 6.4 G/DL (6.4-8.2)
[2022-08-29] MEDS ORDERED: NITROGLYCERIN SL 0.4 MG TABLET SL STA (04:45)
[2022-08-29] MEDS ORDERED: ASPIRIN 325 MG TABLET PO STA (04:45)
[2022-08-29] MEDS ORDERED: ONDANSETRON 4 MG/2 ML VIAL IV PRN (05:14)
[2022-08-29] MEDS ORDERED: POTASSIUM CHLORIDE 20 MEQ TABLET PO STA (06:11)
[2022-08-29] MEDS: DOCUSATE SODIUM 100 MG CAPSULE PO SCH ×2 (08:05→20:11)
[2022-08-29] MEDS: HEPARIN 5,000 UNIT/1 ML VIAL SUBCUT SCH ×2 (08:06→20:11)
[2022-08-29] MEDS: PANTOPRAZOLE 40 MG VIAL IV SCH ×2 (08:07→20:12)
[2022-08-29] MEDS ORDERED: ALBUTEROL 2.5 MG/3 ML NEB RESP TX PRN (12:45)
[2022-08-29] MEDS: ACETAMINOPHEN 325 MG TABLET PO PRN (13:34)
[2022-08-29] MEDS: SEVELAMER CARBONATE 800 MG TABLET PO SCH (16:11)
[2022-08-29] MEDS: ATORVASTATIN 20 MG TABLET PO SCH (20:10)
[2022-08-29] MEDS: MIRTAZAPINE 15 MG TABLET PO SCH (20:10)
[2022-08-29] MEDS: COLESTIPOL 1 GM TABLET PO SCH (20:11)
[2022-08-29] MEDS: hydrALAZINE 20 MG/1 ML VIAL IV PRN (23:51)
[2022-08-30] MEDS: MORPHINE 2 MG/1 ML SYRINGE IV PRN ×3 (04:10→17:13)
[2022-08-30] MEDS: hydrALAZINE 20 MG/1 ML VIAL IV PRN (06:13)
[2022-08-30] MEDS ORDERED: LEVOTHYROXINE 50 MCG TABLET PO SCH (06:30)
[2022-08-30 06:50] LABS: Basophils # 0.1 10*3/uL (0.0-0.2); Basophils % 1.3 % (0.0-0.8); Calcium 8.4 MG/DL (8.5-10.1); Eosinophils # 0.2 10*3/uL (0.0-0.87); Eosinophils % 3.8 % (0.00-10.9); Hematocrit 34.9 VOL% (35.7-47.0); Hemoglobin 10.2 GM/DL (12.0-16.0); Immature Granulocytes % 0.4 %; Immature Granulocytes Absolute 0.02 #; Lymphocytes # 1.2 10*3/uL (1.4-4.0); Lymphocytes % 26.2 % (21.3-54.2); Mean Corpuscular HGB Conc 29.2 GM/DL (32-36); Mean Corpuscular Volume 96.4 FL (87-102); Mean Platelet Volume 9.9 FL (9.6-12.0); Monocytes # 0.5 10*3/uL (0.11-0.8); Monocytes % 11.3 % (1.7-12.7); NRBC # 0.02 10*3/uL; Osmolality,Calculated 282.3 MOS/KG (273-304); Platelet Count 186 T/CUMM (130-400); Potassium 4.4 MMOL/L (3.5-5.1); Red Blood Count 3.62 MC/CUMM (3.8-5.5); Red Cell Distribution Width 17.5 % (9.3-17.3); White Blood Count 4.7 T/CUMM (4-12)
[2022-08-30 06:56] LABS: Folate 7.99 NG/ML (5.38-24.0)
[2022-08-30 07:00] LABS: Risk Ratio 1.34; Thyroid Stimulating Hormone 5.25 uIU/ml (0.358-3.74); VLDL Cholesterol 9.2 MG/DL
[2022-08-30 07:02] LABS: % Iron Saturation 18.2 % (18-50)
[2022-08-30] MEDS: DOCUSATE SODIUM 100 MG CAPSULE PO SCH ×2 (08:35→22:05)
[2022-08-30] MEDS: HEPARIN 5,000 UNIT/1 ML VIAL SUBCUT SCH ×2 (08:35→22:06)
[2022-08-30] MEDS: SEVELAMER CARBONATE 800 MG TABLET PO SCH ×3 (08:35→17:15)
[2022-08-30] MEDS: VALSARTAN 80 MG TABLET PO SCH (08:35)
[2022-08-30] MEDS: POLYETHYLENE GLYCOL POWDER 17 GM PACK PO SCH ×2 (08:35→22:09)
[2022-08-30] MEDS: COLESTIPOL 1 GM TABLET PO SCH ×2 (08:35→22:05)
[2022-08-30] MEDS: ASPIRIN CHEW 81 MG TABLET PO SCH (08:35)
[2022-08-30] MEDS: PANTOPRAZOLE 40 MG VIAL IV SCH ×2 (08:36→22:06)
[2022-08-30] MEDS ORDERED: cloNIDine 0.1 MG TABLET PO SCH (09:00)
[2022-08-30] MEDS ORDERED: FERRIC GLUCONATE COMPLEX 125 MG in SODIUM CHLORIDE 0.9% 100 ML IV ONE (09:47)
[2022-08-30] MEDS: cloNIDine 0.1 MG TABLET PO SCH (22:05)
[2022-08-30] MEDS: MIRTAZAPINE 15 MG TABLET PO SCH (22:05)
[2022-08-30] MEDS: ATORVASTATIN 20 MG TABLET PO SCH (22:06)
[2022-08-31 06:09] LABS: Free T4 (Free Thyroxine) 1.25 NG/DL (0.76-1.46)
[2022-08-31 06:15] LABS: Basophils % 0.8 % (0.0-0.8); Eosinophils # 0.1 10*3/uL (0.0-0.87); Eosinophils % 2.8 % (0.00-10.9); Hematocrit 34.5 VOL% (35.7-47.0); Hemoglobin 10.2 GM/DL (12.0-16.0); Immature Granulocytes % 0.6 %; Immature Granulocytes Absolute 0.03 #; Lymphocytes # 1.2 10*3/uL (1.4-4.0); Lymphocytes % 24.2 % (21.3-54.2); Mean Corpuscular HGB Conc 29.6 GM/DL (32-36); Mean Corpuscular Volume 96.6 FL (87-102); Mean Platelet Volume 10.2 FL (9.6-12.0); Monocytes # 0.5 10*3/uL (0.11-0.8); Monocytes % 10.3 % (1.7-12.7); Neutrophils % 61.3 % (38.7-73.9); Platelet Count 167 T/CUMM (130-400); Red Blood Count 3.57 MC/CUMM (3.8-5.5); Red Cell Distribution Width 17.4 % (9.3-17.3)
[2022-08-31] MEDS: LEVOTHYROXINE 75 MCG TABLET PO SCH (06:59)
[2022-08-31 07:03] LABS: Calcium 8.7 MG/DL (8.5-10.1); Osmolality,Calculated 277.5 MOS/KG (273-304); Potassium 4.1 MMOL/L (3.5-5.1)
[2022-08-31] MEDS ORDERED: FERROUS SULFATE 325 MG TABLET PO SCH (09:00)
[2022-08-31] MEDS: SEVELAMER CARBONATE 800 MG TABLET PO SCH ×3 (09:57→16:41)
[2022-08-31] MEDS: ASPIRIN CHEW 81 MG TABLET PO SCH (09:57)
[2022-08-31] MEDS: COLESTIPOL 1 GM TABLET PO SCH ×2 (10:02→21:28)
[2022-08-31] MEDS: DOCUSATE SODIUM 100 MG CAPSULE PO SCH ×2 (10:02→21:28)
[2022-08-31] MEDS: VALSARTAN 80 MG TABLET PO SCH (10:02)
[2022-08-31] MEDS: cloNIDine 0.1 MG TABLET PO SCH ×2 (10:02→21:28)
[2022-08-31] MEDS: HEPARIN 5,000 UNIT/1 ML VIAL SUBCUT SCH (10:03)
[2022-08-31] MEDS: POLYETHYLENE GLYCOL POWDER 17 GM PACK PO SCH ×2 (10:03→21:29)
[2022-08-31] MEDS: PANTOPRAZOLE 40 MG VIAL IV SCH ×2 (10:05→21:29)
[2022-08-31] MEDS: SODIUM CHLORIDE 0.9% 1,000 ML IV SCH (12:57)
[2022-08-31] MEDS: carvediloL 3.125 MG TABLET PO SCH (16:41)
[2022-08-31] MEDS: ACETAMINOPHEN 325 MG TABLET PO PRN (18:26)
[2022-08-31] MEDS: ATORVASTATIN 20 MG TABLET PO SCH (21:28)
[2022-08-31] MEDS: MIRTAZAPINE 15 MG TABLET PO SCH (21:28)
[2022-09-01 05:27] LABS: Calcium 8.7 MG/DL (8.5-10.1); Potassium 4.4 MMOL/L (3.5-5.1)
[2022-09-01 05:58] LABS: Basophils # 0.1 10*3/uL (0.0-0.2); Basophils % 1.2 % (0.0-0.8); Eosinophils # 0.2 10*3/uL (0.0-0.87); Eosinophils % 4.5 % (0.00-10.9); Hematocrit 34.2 VOL% (35.7-47.0); Hemoglobin 10.1 GM/DL (12.0-16.0); Immature Granulocytes % 0.4 %; Immature Granulocytes Absolute 0.02 #; Lymphocytes # 1.1 10*3/uL (1.4-4.0); Lymphocytes % 22.3 % (21.3-54.2); Mean Corpuscular HGB Conc 29.5 GM/DL (32-36); Mean Corpuscular Volume 97.2 FL (87-102); Mean Platelet Volume 10.1 FL (9.6-12.0); Monocytes # 0.6 10*3/uL (0.11-0.8); Neutrophils % 59.6 % (38.7-73.9); Platelet Count 164 T/CUMM (130-400); Red Blood Count 3.52 MC/CUMM (3.8-5.5); Red Cell Distribution Width 17.3 % (9.3-17.3); White Blood Count 4.8 T/CUMM (4-12)
[2022-09-01] MEDS: LEVOTHYROXINE 75 MCG TABLET PO SCH (06:10)
[2022-09-01] MEDS: POLYETHYLENE GLYCOL POWDER 17 GM PACK PO SCH ×2 (12:52→21:23)
[2022-09-01] MEDS: COLESTIPOL 1 GM TABLET PO SCH ×2 (12:52→21:23)
[2022-09-01] MEDS: SEVELAMER CARBONATE 800 MG TABLET PO SCH ×3 (12:53→17:12)
[2022-09-01] MEDS: DOCUSATE SODIUM 100 MG CAPSULE PO SCH ×2 (12:53→21:23)
[2022-09-01] MEDS: PANTOPRAZOLE 40 MG VIAL IV SCH ×2 (12:53→21:28)
[2022-09-01] MEDS: SODIUM CHLORIDE 0.9% 1,000 ML IV SCH (12:54)
[2022-09-01] MEDS: ASPIRIN CHEW 81 MG TABLET PO SCH (13:18)
[2022-09-01] MEDS: VALSARTAN 80 MG TABLET PO SCH (13:18)
[2022-09-01] MEDS: cloNIDine 0.1 MG TABLET PO SCH ×2 (13:18→21:23)
[2022-09-01] MEDS: carvediloL 3.125 MG TABLET PO SCH ×2 (13:18→17:12)
[2022-09-01] MEDS ORDERED: diphenhydrAMINE CAP 25 MG CAPSULE PO ONE (14:00)
[2022-09-01] MEDS ORDERED: DIAZEPAM 5 MG TABLET PO ONE (14:00)
[2022-09-01] MEDS ORDERED: HEPARIN/NACL 0.9% 2 UNITS/ML 2,000 UNIT/1,000 ML BAG IV ONE (15:11)
[2022-09-01] MEDS ORDERED: NITROGLYCERIN DRIP 50 MG/250 ML BOTTLE IV ONE (15:45)
[2022-09-01] MEDS ORDERED: VERAPAMIL 5 MG/2 ML VIAL ONE (15:45)
[2022-09-01] MEDS ORDERED: ENOXAPARIN 30 MG/0.3 ML SYRINGE ONE (15:49)
[2022-09-01] MEDS: MIRTAZAPINE 15 MG TABLET PO SCH (21:22)
[2022-09-01] MEDS: ATORVASTATIN 20 MG TABLET PO SCH (21:23)
[2022-09-02 05:16] LABS: Basophils # 0.1 10*3/uL (0.0-0.2); Basophils % 1.2 % (0.0-0.8); Eosinophils # 0.2 10*3/uL (0.0-0.87); Eosinophils % 3.9 % (0.00-10.9); Hematocrit 34.5 VOL% (35.7-47.0); Hemoglobin 10.3 GM/DL (12.0-16.0); Immature Granulocytes % 0.2 %; Immature Granulocytes Absolute 0.01 #; Lymphocytes % 22.2 % (21.3-54.2); Mean Corpuscular HGB Conc 29.9 GM/DL (32-36); Mean Corpuscular Volume 94.5 FL (87-102); Mean Platelet Volume 10.3 FL (9.6-12.0); Monocytes # 0.5 10*3/uL (0.11-0.8); Neutrophils % 60.5 % (38.7-73.9); Platelet Count 162 T/CUMM (130-400); Red Blood Count 3.65 MC/CUMM (3.8-5.5); Red Cell Distribution Width 17.4 % (9.3-17.3); White Blood Count 4.3 T/CUMM (4-12)
[2022-09-02 05:37] LABS: Calcium 8.5 MG/DL (8.5-10.1); Osmolality,Calculated 279.7 MOS/KG (273-304)
[2022-09-02] MEDS: LEVOTHYROXINE 75 MCG TABLET PO SCH (06:22)
[2022-09-02] MEDS: POLYETHYLENE GLYCOL POWDER 17 GM PACK PO SCH (08:30)
[2022-09-02] MEDS: PANTOPRAZOLE 40 MG VIAL IV SCH (08:30)
[2022-09-02] MEDS: cloNIDine 0.1 MG TABLET PO SCH (08:31)
[2022-09-02] MEDS: VALSARTAN 80 MG TABLET PO SCH (08:31)
[2022-09-02] MEDS: ASPIRIN CHEW 81 MG TABLET PO SCH (08:32)
[2022-09-02] MEDS: DOCUSATE SODIUM 100 MG CAPSULE PO SCH (08:32)
[2022-09-02] MEDS: COLESTIPOL 1 GM TABLET PO SCH (08:32)
[2022-09-02] MEDS: carvediloL 3.125 MG TABLET PO SCH (08:32)
[2022-09-02] MEDS: SEVELAMER CARBONATE 800 MG TABLET PO SCH ×2 (08:32→11:59)
[2022-09-02] MEDS: SODIUM CHLORIDE 0.9% 1,000 ML IV SCH (11:26)
[2022-09-02 12:25] VITALS: BP 152/55
== END 2022-09-02 13:30 | disposition home or self-care (01) ==
LOC: N.ED 03:20 → N.EDINP 03:20 → SUATTDRO 05:14 → N.ICU 06:21 → N.3E 08-30 16:11
PROVIDERS: ADMIT Hospitalist; ATTEND Internal Medicine
PROC: CLCCHCL (ICD-10-PCS; 2022-09-01 14:15)